=== PATIENT | female | born 1960 | race Caucasian/White ===

== ENCOUNTER 2017-01-31 10:33 | Emergency (ER) | payer MEDICARE ==
[~2017-01-31] VITALS: Ht 162.6 cm; Wt 127.0 kg
[~2017-01-31 10:33] MED LIST: ALBU8I INH; AMIT100 PO; CITA20TA4 PO; DIAZ5 PO; DOXA1 PO; DUONI NEB; FURO40TA PO; LOSA100T PO; METF850 PO; NORC10TA2 PO; POTA-267 PO; PRIL40CA PO; SULF-154 PO; WAL-10TA2 PO; ZOLP10TA3 PO
[2017-01-31 10:51] VITALS: BP 159/91; PULSE 68; RESP 17; TEMP 98; O2SAT 9; O2SAT 95
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
[2017-01-31 13:20] VITALS: BP 148/87; PULSE 70; RESP 16; O2SAT 97
[2017-01-31] MEDS ORDERED: IPRASOL INH (13:31)
[2017-01-31] MEDS ORDERED: FURO40TA PO (13:31)
[2017-01-31] MEDS ORDERED: VENTAER INH (13:31)
[2017-01-31] MEDS ORDERED: AMIT100T2 PO (13:31)
[2017-01-31] MEDS ORDERED: ADVA250A INH (13:31)
[2017-01-31] MEDS ORDERED: OMEP40CA2 PO (13:31)
[2017-01-31] MEDS ORDERED: DIAZ5TAB PO (13:31)
[2017-01-31] MEDS ORDERED: ZOLP10TA3 PO (13:31)
[2017-01-31] MEDS ORDERED: HYDR-3133 PO (13:31)
[2017-01-31] MEDS ORDERED: CITA20TA4 PO (13:37)
[2017-01-31] MEDS ORDERED: LOSA100T PO (13:37)
[2017-01-31] MEDS ORDERED: DOXA1TAB43 PO (13:37)
[2017-01-31] MEDS ORDERED: K-TA10TA PO (13:37)
[2017-01-31] MEDS ORDERED: DOXA4TAB3 PO (13:37)
[2017-01-31] MEDS ORDERED: LEVO25TA4 PO (13:37)
[2017-01-31] MEDS ORDERED: HYDR-3535 PO (13:37)
--- NOTE | 2017-01-31 13:56 | RADHPO ---
EXAM DATE/TIME: 01/31/2017 13:19 [facility] COMPARISON: No previous studies available for comparison. INDICATIONS : Left knee after fall. MEDICAL HISTORY : None. SURGICAL HISTORY : Total knee replacement, left. Total knee replacement, right. ENCOUNTER: Initial ACUITY: 2 days PAIN SCORE: 10/10 LOCATION: Left knee FINDINGS: There is a total knee prosthesis in place. This is well placed. No acute fracture is seen. No effusio n is seen. CONCLUSION: No acute disease. Sathya Hensley MD on January 31, 2017 at 13:52 Board Certified Radiologist. This report was verified electronically.
--- NOTE | 2017-01-31 14:02 | RADHPO ---
EXAM DATE/TIME: 01/31/2017 13:22 [facility] COMPARISON: KNEE LEFT COMPLETE (4VWS), January 31, 2017, 13:19. KNEE RIGHT COMPLETE (4VWS), August 05, 2013, 19 :43. INDICATIONS : Right knee pain after fall. MEDICAL HISTORY : None. SURGICAL HISTORY : Total knee replacement, left. Total knee replacement, right. ENCOUNTER: Initial ACUITY: 2 days PAIN SCORE: 10/10 LOCATION: Right knee FINDINGS: There is total knee prosthesis in place. Long femoral and tibial stems are present. An acute fracture is not seen. There is some stable linear lucency at the proximal lateral tibial metaphyseal region. This was present previously. There is prominent chronic hypertrophic/periosteal reaction at the more distal aspect of the tibial shaft. This was present previously. There is some hypertrophic change see n around the medial and lateral aspects of the knee joint. CONCLUSION: Stable chronic changes as described above. No new or acute abnormality is not seen. Sathya Hensley MD on January 31, 2017 at 13:55 Board Certified Radiologist. This report was verified electronically.
[2017-01-31 14:15] VITALS: BP 157/84; PULSE 72; RESP 16; O2SAT 98
--- NOTE | 2017-01-31 14:24 | RADHPO ---
EXAM DATE/TIME: 01/31/2017 14:07 [facility] COMPARISON: CT BRAIN W/O CONTRAST, November 17, 2012, 20:12. INDICATIONS : Fell two days ago. Right head and facial pain. RADIATION DOSE: 59.64 CTDIvol (mGy) MEDICAL HISTORY : Hypothyroidism. Cardiovascular disease. Anticoagulant therapy. SURGICAL HISTORY : Hysterectomy. Craniotomy ENCOUNTER: Initial ACUITY: 2 days PAIN SCALE: 3/10 LOCATION: Right cranial TECHNIQUE: Multiple contiguous axial images were obtained of the head. Using automated exposure control and adjustment of the mA and/or kV according to patient size, radiation dose was kept as low as reasonably achievable to obtain optimal diagnostic quality images. 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 Right hemisphere is unremarkable. Posterior fossa is normal. Orbits and paranasal sinu ses are unremarkable. CONCLUSION: Evidence for previous surgery on the left. Otherwise, negative for an acute process. Maged Hernandez MD FACR on January 31, 2017 at 14:20 Board Certified Radiologist. This report was verified electronically.
--- NOTE | 2017-01-31 14:39 | RADHPO ---
EXAM DATE/TIME: 01/31/2017 14:07 [facility] COMPARISON: No previous studies available for comparison. INDICATIONS : Fell two days ago. Right head and facial pain. RADIATION DOSE: 34.35 CTDIvol (mGy) MEDICAL HISTORY : Hypothyroidism. Cardiovascular disease Anticoagulant therapy. SURGICAL HISTORY : Hysterectomy. Craniotomy ENCOUNTER: Initial ACUITY: 2 days PAIN SCORE: 3/10 LOCATION: Right facial TECHNIQUE: Volumetric scanning of the facial bones was performed. Using automated exposure control and adjustme nt of the mA and/or kV according to patient size, radiation dose was kept as low as reasonably achiev able to obtain optimal diagnostic quality images. FINDINGS: ORBITS: The orbital and infraorbital osseous structures are intact. The retroconal structures have a normal configuration. No radiopaque foreign bodies are seen. NASAL BONE: The nasal bone and maxillary spine are intact ZYGOMATIC ARCHES: Symmetric without evidence of fracture. SINUSES: The maxillary, ethmoid and frontal sinuses are intact. No air-fluid levels seen. NASAL CAVITY: The nasal septum is intact and midline. The lacrimal ducts are intact. SOFT TISSUES: No radiopaque foreign bodies seen. No soft-tissue swelling is seen. INTRACRANIAL: No intracranial air seen. CRIBIFORM PLATE: Grossly intact. OTHER: The patient is status post left craniotomy. CONCLUSION: No acute abnormality is seen. The patient is status post left craniotomy. Sathya Hensley MD on January 31, 2017 at 14:35 Board Certified Radiologist. This report was verified electronically.
== END 2017-01-31 16:12 | disposition home or self-care (01) ==
LOC: PHED 10:33
DX: S00.83XA Contusion of other part of head, initial encounter (principal); S80.02XA Contusion of left knee, initial encounter; S80.01XA Contusion of right knee, initial encounter; W01.0XXA Fall on same level from slipping, tripping and stumbling without subsequent striking against object, initial encounter; Y93.H2 Activity, gardening and landscaping; Y92.007 Garden or yard of unspecified non-institutional (private) residence as the place of occurrence of the external cause; W19.XXXA Unspecified fall, initial encounter; Y93.9 Activity, unspecified; Y92.002 Bathroom of unspecified non-institutional (private) residence as the place of occurrence of the external cause; I10 Essential (primary) hypertension; E03.9 Hypothyroidism, unspecified
CPT/HCPCS: 70450; 70486; 73564

== ENCOUNTER 2017-06-28 11:18 | Inpatient (IN) | payer MEDICARE ==
[2017-06-28] VITALS (18 sets, daily range): BP systolic 72–114; BP diastolic 41–66; PULSE 84–103; RESP 16–33; TEMP 99.1–100.9; O2SAT 91–99
[~2017-06-28] VITALS: Ht 165.1 cm; Wt 131.6 kg
[~2017-06-28 11:18] MED LIST changes: +ADVA250A INH; -ALBU8I INH; -AMIT100 PO; +AMIT100T2 PO; -DIAZ5 PO; +DIAZ5TAB PO; -DOXA1 PO; +DOXA1TAB43 PO; +DOXA4TAB3 PO; -DUONI NEB; +HYDR-3133 PO; +HYDR-3535 PO; +IPRASOL INH; +K-TA10TA PO; +LEVO25TA4 PO; -NORC10TA2 PO; +OMEP40CA2 PO; -POTA-267 PO; -PRIL40CA PO; -SULF-154 PO; +VENTAER INH; -WAL-10TA2 PO
[2017-06-28] MEDS ORDERED: SODIUM CHLOR 0.9% 1000 ML INJ 1,000 ML IV SCH (11:26)
[2017-06-28] MEDS ORDERED: ONDANSETRON HCL 4 MG/2 ML VIAL IVP ONE (11:30)
[2017-06-28] MEDS ORDERED: SODIUM CHLORIDE 0.9% FLUSH 10 ML FLUSH IV FLUSH PRN ×2 (11:30→15:30)
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
--- NOTE | 2017-06-28 12:06 | RADRPT ---
EXAM DATE/TIME: 06/28/2017 11:48 [facility] COMPARISON: CT ABDOMEN & PELVIS W CONTRAST, September 04, 2010, 15:58. INDICATIONS : Bilateral mid lower abdominal pain. Evaluate for renal calculi. ORAL CONTRAST: No oral contrast ingested. RADIATION DOSE: 27.87 CTDIvol (mGy) ; Patient body habitus MEDICAL HISTORY : Hypertension. SURGICAL HISTORY : Hysterectomy. Craniotomy.Esophagus dilation. ENCOUNTER: Initial ACUITY: 3 days PAIN SCALE: 6/10 LOCATION: Bilateral lower quadrant TECHNIQUE: Volumetric scanning of the abdomen and pelvis was performed. Using automated exposure control and ad justment of the mA and/or kV according to patient size, radiation dose was kept as low as reasonably achievable to obtain optimal diagnostic quality images. DICOM format image data is available electro nically for review and comparison. The lack of IV contrast limits the diagnosis for certain organ pa thology. FINDINGS: LIVER: Homogeneous density without lesion. There is no dilation of the biliary tree. There are stable calci fied gallstones. No change compared to 2009. No adjacent inflammatory changes. SPLEEN: Normal size without lesion. PANCREAS: Within normal limits. KIDNEYS: Normal in size and shape. There is no mass or hydronephrosis. There is a 3 mm stone midpole right ki dney not causing obstruction. There is a 7 mm stone upper pole left kidney not causing obstruction. T here is a 4 mm stone lower pole left kidney not causing obstruction. The ureters are nondilated. ADRENAL GLANDS: Within normal limits. VASCULAR: There is no aortic aneurysm. BOWEL/MESENTERY: The stomach, small bowel, and colon demonstrate no acute abnormality. There is no free intraperitone al air or fluid. No inflammatory changes. There is some scattered diverticula along the sigmoid colon without inflammatory changes. ABDOMINAL WALL: Within normal limits. RETROPERITONEUM: There is no lymphadenopathy. BLADDER: No wall thickening or mass. No stones. REPRODUCTIVE: Within normal limits. INGUINAL: There is no lymphadenopathy or hernia. MUSCULOSKELETAL: Within normal limits for patient age. Bony degenerative changes. CONCLUSION: 1. 7 mm stone midpole left kidney not causing obstruction. 2. 4 mm stone lower pole left kidney not causing obstruction. 3. 3 mm stone midpole right kidney not causing obstruction. 4. Stable gallstones in the gallbladder. No biliary tract obstruction. 5. Scattered diverticulosis of the sigmoid colon 6. No significant changes compared to 2009. Eric Flores MD on June 28, 2017 at 11:59 Board Certified Radiologist. This report was verified electronically.
[2017-06-28 12:11] LABS: AUTOMATED NEUTROPHIL # 7.1 TH/MM3 (1.8-7.7); BASOPHIL # 0.1 TH/MM3 (0-0.2); BASOPHIL % 1.1 % (0.0-2.0); EOSINOPHIL # 0.1 TH/MM3 (0-0.4); EOSINOPHIL % 1.1 % (0.0-4.0); HEMATOCRIT 40.3 % (35.0-46.0); LYMPH % 28.2 % (9.0-44.0); LYMPHOCYTE # 3.2 TH/MM3 (1.0-4.8); MEAN CELL VOLUME 89.6 FL (80.0-100.0); MEAN CORPUSCULAR HEMOGLOBIN 30.2 PG (27.0-34.0); MEAN CORPUSCULAR HGB CONC 33.7 % (32.0-36.0); MONO % 7.5 % (0.0-8.0); NEUT % 62.1 % (16.0-70.0); PLATELET COUNT 95 TH/MM3 (150-450); RED BLOOD COUNT 4.49 MIL/MM3 (4.00-5.30); RED CELL DISTRIBUTION WIDTH 13.3 % (11.6-17.2); WHITE BLOOD COUNT 11.4 TH/MM3 (4.0-11.0)
[2017-06-28 12:15] LABS: HEMO FLAGS AUTO DIFF
[2017-06-28 12:18] LABS: CHLORIDE 94 MEQ/L (98-107); POTASSIUM 3.5 MEQ/L (3.5-5.1); SODIUM (NA) 129 MEQ/L (136-145)
[2017-06-28 12:22] LABS: ANION GAP 11 MEQ/L (5-15); BICARBONATE 24.4 MEQ/L (21.0-32.0); BLOOD UREA NITROGEN 26 MG/DL (7-18)
[2017-06-28] MEDS ORDERED: IPRASOL INH (12:22)
[2017-06-28] MEDS ORDERED: METR500T10 PO (12:22)
[2017-06-28] MEDS ORDERED: BETA0.052 TOPICAL (12:22)
[2017-06-28] MEDS ORDERED: VENTAER INH (12:22)
[2017-06-28] MEDS ORDERED: ZOLP10TA3 PO (12:22)
[2017-06-28] MEDS ORDERED: OXYC1TAB35 PO (12:22)
[2017-06-28] MEDS ORDERED: TRAZ100T6 PO (12:22)
[2017-06-28] MEDS ORDERED: CITA20TA4 PO (12:22)
[2017-06-28] MEDS ORDERED: ADVA250A INH (12:22)
[2017-06-28] MEDS ORDERED: CIPR500T2 PO (12:22)
[2017-06-28] MEDS ORDERED: DIAZ5TAB PO (12:22)
[2017-06-28] MEDS ORDERED: FURO20TA PO (12:22)
[2017-06-28] MEDS ORDERED: LOSA50TA PO (12:22)
[2017-06-28] MEDS ORDERED: LEVO25TA4 PO (12:22)
[2017-06-28] MEDS ORDERED: ALLE10TA PO (12:23)
[2017-06-28] MEDS ORDERED: LOTR15T TOPICAL (12:23)
[2017-06-28] MEDS ORDERED: ALEV220T14 PO (12:23)
[2017-06-28] MEDS ORDERED: OMEP40CA2 PO (12:23)
[2017-06-28] MEDS ORDERED: NYST15T TOPICAL (12:23)
[2017-06-28] MEDS ORDERED: SPIR25TA PO (12:23)
[2017-06-28 12:25] LABS: ALT (GPT) 41 U/L (10-53); AST (GOT) 48 U/L (15-37); GLOMERULAR FILTRATION RATE 17 ML/MIN (>89)
[2017-06-28 12:27] LABS: TOTAL BILIRUBIN ADULT 0.6 MG/DL (0.2-1.0)
[2017-06-28 12:28] LABS: ALKALINE PHOSPHATASE 94 U/L (45-117)
[2017-06-28] MEDS ORDERED: SODIUM CHLOR 0.9% 1000 ML INJ 1,000 ML IV ONE ×3 (12:32→12:45)
[2017-06-28] MEDS ORDERED: AZTREONAM INJ 2,000 MG in SODIUM CHLORIDE 0.9% INJ 100 ML IV STA (12:32)
[2017-06-28] MEDS ORDERED: SODIUM CHLOR 0.9% 1000 ML INJ 100 ML IV ONE (12:32)
[2017-06-28 12:37] LABS: PLATELET ESTIMATE SMEAR LOW (NORMAL); PLATELET MORPHOLOGY NORMAL (NORMAL); SCAN/DIFF AUTO DIFF CONFIRMED
[2017-06-28] MEDS ORDERED: NOREPINEPHRINE 4 MG/4 ML AMP ONE (12:38)
[2017-06-28] MEDS ORDERED: NOREPINEPHRINE-DEXTROSE DRIP 250 ML IV SCH (12:45)
[2017-06-28] MEDS ORDERED: metroNIDAZOLE 500 MG INJ 100 ML IV ONE (12:45)
[2017-06-28 12:58] LABS: APTT (PATIENT) 28.4 SEC (24.3-30.1); INTERNATIONAL NORMALIZED RATIO 1.2 RATIO
[2017-06-28 14:02] LABS: BLOOD, URINE SMALL (NEG); GLUCOSE,URINE NEG (NEG); KETONE, URINE NEG (NEG); NITRITE,URINE NEG (NEG); PH, URINE 5.5 (5.0-8.5)
[2017-06-28 14:05] LABS: METHOD OF COLLECTION CLEAN CATCH; URINE COLOR YELLOW (YELLW/STRAW)
[2017-06-28 14:07] LABS: BACTERIA, URINE FEW /hpf; COMMENT (UR) CULTURE INDICATED; COMMENT2 (UR) MUCOUS PRESENT; CULTURE IF INDICATED CULTURE INDICATED
--- NOTE | 2017-06-28 15:23 | RADRPT ---
EXAM DATE/TIME: 06/28/2017 15:06 [facility] COMPARISON: CHEST SINGLE AP, February 06, 2016, 16:46. INDICATIONS : Post central line placement. MEDICAL HISTORY : Hypertension. SURGICAL HISTORY : None. ENCOUNTER: Initial ACUITY: 1 day PAIN SCORE: 6/10 LOCATION: Right chest FINDINGS: A single view of the chest demonstrates a right central line in place. No evidence of pneumothorax. T here appears to be some pulmonary venous congestion. Otherwise, no significant changes compared to th e prior study. The heart size is mildly enlarged. Bony structures are stable. There are old right-bk ed rib fractures.. CONCLUSION: 1. Right central line in place. No pneumothorax. 2. Pulmonary venous congestion. Eric Flores MD on June 28, 2017 at 15:21 Board Certified Radiologist. This report was verified electronically.
[2017-06-28] MEDS ORDERED: CHLORHEXIDINE GLUCONATE 2 % 1 PACK (2 CLOTHS) TOP PRN (15:30)
[2017-06-28] MEDS ORDERED: LACTULOSE SYRUP 20 GM/30 ML CUP PO PRN (15:30)
[2017-06-28] MEDS ORDERED: SENNOSIDES 8.6 MG TAB PO PRN (15:30)
[2017-06-28] MEDS ORDERED: ONDANSETRON HCL 4 MG/2 ML VIAL IV PRN (15:30)
[2017-06-28] MEDS ORDERED: RESP: ALBUTEROL 2.5 MG/IPRATROPIUM 0.5 MG NEB (PRN) INH (15:30)
[2017-06-28] MEDS ORDERED: BISACODYL 10 MG SUPP RECTAL PRN (15:30)
[2017-06-28] MEDS ORDERED: ACETAMINOPHEN 325 MG TAB PO PRN (15:30)
[2017-06-28] MEDS ORDERED: MAGNESIUM HYDROXIDE SUSP 30 ML CUP PO PRN (15:30)
[2017-06-28] MEDS ORDERED: MISCELLANEOUS NURSING INFORMATION XX SCH (15:30)
[2017-06-28] MEDS ORDERED: HYDROmorphone HCL PF 1 MG/ML VIAL IV PRN (15:30)
[2017-06-28] MEDS ORDERED: Vancomycin Consult Pharmacy 1 EA OTHER SCH (15:45)
[2017-06-28] MEDS ORDERED: Gentamicin Consult Pharmacy 1 EA XX SCH (15:45)
[2017-06-28] MEDS ORDERED: TERBUTALINE INJ 1 MG/ML AMP SQ PRN (15:45)
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
[2017-06-28 19:41] LABS: THYROXINE (T4) 9.9 MCG/DL (4.8-13.9)
[2017-06-28] MEDS ORDERED: VANCOMYCIN INJ 1,600 MG in SODIUM CHLORID 0.9% 500 ML INJ 500 ML IV SCH (20:00)
[2017-06-28] MEDS: DOCUSATE SODIUM 50 MG/SENNA 8.6 MG TAB PO SCH (20:58)
[2017-06-28] MEDS: BUDESONIDE-FORMOTEROL 160/4.5 MCG INHALER INH SCH (20:58)
[2017-06-28] MEDS: FAMOTIDINE 20 MG/2 ML VIAL IV PUSH SCH (20:59)
[2017-06-28] MEDS ORDERED: GENTAMICIN IV ONE (21:00)
[2017-06-28] MEDS ORDERED: SODIUM CHLORIDE 0.9% IV ONE (21:00)
[2017-06-28] MEDS: SODIUM CHLORIDE 0.9% FLUSH 10 ML FLUSH IV FLUSH SCH (21:01)
--- NOTE | 2017-06-28 21:52 | MB ---
cc: AGATA KUHN MD DATE OF CONSULTATION 06/28/2017 REASON FOR CONSULTATION Elevated BUN and creatinine for evaluation. HISTORY OF PRESENT ILLNESS This is a 57-year-old female with past medical history of anxiety. depression, bronchial asthma, hypertension, arthritis, hypothyroidism was brought to the [facility] emergency because of nausea, vomiting and generalized weakness. I was called to see the patient because of elevated BUN and creatinine and low potassium of 129. The patient was found to have creatinine of 2.8 and BUN of 26 and sodium of 129. The patient previously has a creatinine of 0.8-0.9 this was about a year ago in April of last year. The patient denies any previous known history of renal disease. She has been sick for three or four days at home and was feeling weak and dizzy on Tuesday and had a syncopal episode on Tuesday. She went to see her primary physician on Tuesday and she was given some antibiotic for urinary tract infection, but she was not improving and feeling weak and not eating well and having this nausea vomiting going on so she came to the emergency department. There it was found that she has low blood pressure systolic 70s. The patient was given fluid. She started on pressors and she was transferred to the main hospital. She denies any history of diarrhea. She has mild abdominal pain. She has chronic shortness of breath off and on. She does not have any dysuria, hematuria. She did not notice any decrease in the urine output. There is no history of taking any nonsteroidal anti-inflammatory drugs. PAST MEDICAL HISTORY 1. Hypertension. 2. Bronchial asthma. 3. Arthritis. 4. Anxiety. 5. Depression. 6. Gastroesophageal reflux disorder. 7. Hypothyroidism. PAST SURGICAL HISTORY 1. Hysterectomy. 2. History of craniotomy for subdural hematoma. 3. Cardiac catheterization. 4. Right total knee replacement. 5. Left total knee replacement. 6. Left humerus surgery with plating and screw. SOCIAL HISTORY There is no history of smoking. Occasionally she has alcoholic beverages. FAMILY HISTORY Noncontributory. REVIEW OF SYSTEMS The patient has generalized weakness, feeling tired and has been feeling dizzy and she had a syncopal episode on Tuesday. She is not eating well, has nausea and vomiting and has mild abdominal discomfort. There is no history of chest pain. No shortness of breath. No dysuria, hematuria. ALLERGIES SHE HAS ALLERGY TO HUA INHIBITORS. MEDICATIONS Currently she is on following medications: 1. Normal saline at 84 ml an hour. 2. Sarah-Colace 1 tablet b.i.d. 3. Celexa 20 mg daily. 4. Synthroid 25 mcg daily. 5. Aztreonam 1 gram q. 12-hour. 6. Gentamicin one dose was given. 7. Famotidine 12 mg once a day. 8. Vancomycin 1.6 grams q. 36-hour. 9. Norepinephrine. 10. Dilaudid as needed. 11. PHYSICAL EXAMINATION GENERAL: On examination the patient is awake, alert. She is not in acute distress. VITAL SIGNS: Her last blood pressure 94/62, temperature is 99.1, oxygen saturation on 2 liters nasal cannula 95%. The lowest recorded blood pressure was 75/51 on presentation. HEENT: Pupils are mid constricted. Nonicteric sclera, conjunctiva normal. NECK: Supple. JVD is mildly elevated. LUNGS: The patient has bilateral good air entry with scattered wheezing. HEART: S1-S2. Regular rhythm. ABDOMEN: Distended, soft, lax. There is mild epigastric tenderness. There is no rebound rigidity. Bowel sounds positive. EXTREMITIES: There is no edema. LABORATORY DATA Investigations WBC count 11.4, hemoglobin 13.6, platelet count of 95, neutrophils 62.1%. sodium 129, potassium 3.5, chloride 94, bicarb 24.4, BUN 26, creatinine 2.8, glucose 108. Calcium 8.0. AST is 48, ALT is 41. Troponin is 0.02. Total protein is 6.4. Albumin of 2.3. INR 1.2. Urinalysis showing that there is no protein. She has a rbc's of 10-14 and wbc's of 3-5. IMAGING STUDIES The patient had a chest x-ray done which shows some pulmonary venous congestion. CT scan of the abdomen and pelvis was done without IV contrast and shows 7 mm mid pole left renal stone without obstruction. Also there is 4 mm stone on the left side and a 3 mm on the right side. He has stable gallstone. No biliary obstruction. Diverticulosis. ASSESSMENT/PLAN 1. Hypotension rule-out sepsis. 2. Acute kidney injury. 3. Possible urinary tract infection. 4. History of bronchial asthma. 5. Hyponatremia. 6. Dehydration. The patient has acute kidney injury with no proteinuria, most likely has acute tubular necrosis. She has been nonoliguric. Blood pressure is improving. Continue IV fluid and the antibiotic. Follow the culture results. Follow the vancomycin level. Avoid any other further nephrotoxins. Follow the urine output and BUN and creatinine. Thank you for the consultation and I will follow the patient while she is in the hospital. MD ALINE Roberson/KK /5:55 PM /9:24 PM
[2017-06-28] MEDS ORDERED: VASOPRESSIN INJ 40 UNITS in DEXTROSE 5% IN WATER 100ML INJ 98 ML IV SCH ×2 (23:18)
[2017-06-28] MEDS: NOREPINEPHRINE INJ 4 MG in SODIUM CHLOR 0.9% 250 ML INJ 246 ML IV SCH (23:56)
[2017-06-29] VITALS (14 sets, daily range): BP systolic 88–121; BP diastolic 52–68; PULSE 80–91; RESP 20–32; TEMP 98.4–99.8; O2SAT 90–97
[2017-06-29] MEDS ORDERED: AZTREONAM INJ 1,000 MG in SODIUM CHLORIDE 0.9% INJ 100 ML IV SCH ×2
[2017-06-29] MEDS: CHLORHEXIDINE GLUCONATE 2 % 1 PACK (2 CLOTHS) TOP SCH (04:00)
[2017-06-29] MEDS: LEVOTHYROXINE SODIUM 25 MCG TAB PO SCH (05:50)
[2017-06-29] MEDS: NOREPINEPHRINE INJ 4 MG in SODIUM CHLOR 0.9% 250 ML INJ 246 ML IV SCH ×2 (06:45→08:07)
[2017-06-29] MEDS: BUDESONIDE-FORMOTEROL 160/4.5 MCG INHALER INH SCH ×2 (08:06→19:45)
[2017-06-29] MEDS: SODIUM CHLORIDE 0.9% FLUSH 10 ML FLUSH IV FLUSH SCH ×2 (08:06→19:44)
[2017-06-29] MEDS: FAMOTIDINE 20 MG/2 ML VIAL IV PUSH SCH ×2 (08:07→19:44)
[2017-06-29] MEDS: CITALOPRAM HYDROBROMIDE 20 MG TAB PO SCH (08:07)
[2017-06-29] MEDS: DOCUSATE SODIUM 50 MG/SENNA 8.6 MG TAB PO SCH ×2 (08:07→19:44)
--- NOTE | 2017-06-29 08:17 | EKG ---
Date Performed: 06/29/2017 Time Performed: 03:04:00 PTAGE: 57 years EKG: Sinus rhythm Low QRS voltages in precordial leads Borderline ECG PREVIOUS TRACING : 06/28/2017 20.59 DOCTOR: Perez Rhodes Interpretating Date/Time 06/29/2017 08:16:00
--- NOTE | 2017-06-29 08:23 | EKG ---
Date Performed: 06/28/2017 Time Performed: 20:59:58 PTAGE: 57 years EKG: Sinus rhythm LOW QRS VOLTAGE IN PRECORDIAL LEADS BORDERLINE ECG PREVIOUS TRACING : 06/28/2017 11.25 DOCTOR: Perez Rhodes Interpretating Date/Time 06/29/2017 08:22:41
--- NOTE | 2017-06-29 08:39 | EKG ---
Date Performed: 06/28/2017 Time Performed: 11:25:27 PTAGE: 57 years EKG: SINUS TACHYCARDIA LOW QRS VOLTAGE IN PRECORDIAL LEADS POSSIBLE ANTERIOR MYOCARDIAL INFARCTI ON ABNORMAL ECG INTERPRETATION BASED ON A DEFAULT AGE OF 40 YEARS NO PREVIOUS TRACING DOCTOR: Perez Rhodes Interpretating Date/Time 06/29/2017 08:33:17
[2017-06-29 08:43] LABS: HEMATOCRIT 36.8 % (35.0-46.0); MEAN CELL VOLUME 91.7 FL (80.0-100.0); MEAN CORPUSCULAR HEMOGLOBIN 30.5 PG (27.0-34.0); MEAN CORPUSCULAR HGB CONC 33.2 % (32.0-36.0); PLATELET COUNT 114 TH/MM3 (150-450); RED BLOOD COUNT 4.01 MIL/MM3 (4.00-5.30); RED CELL DISTRIBUTION WIDTH 14.1 % (11.6-17.2); WHITE BLOOD COUNT 11.3 TH/MM3 (4.0-11.0)
[2017-06-29 08:46] LABS: HEMO FLAGS AUTO DIFF
[2017-06-29 09:21] LABS: POTASSIUM 3.1 MEQ/L (3.5-5.1)
[2017-06-29 09:39] LABS: CALCIUM-PROTEIN CORRECTED 7.9 MG/DL (8.5-10.1)
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
[2017-06-29] MEDS ORDERED: GLUCAGON 1 MG/ML VIAL OTHER PRN ×2 (09:45→15:30)
[2017-06-29] MEDS ORDERED: PLEASE DISCONTINUE PREVIOUS SUPPLEMENTAL SCALE INSULIN ORDERS ONE (09:45)
[2017-06-29] MEDS ORDERED: DEXTROSE 50% IN WATER 50 ML VIAL(D50) IV PUSH PRN (09:45)
[2017-06-29 10:06] LABS: ATYPICAL LYMPHOCYTES 13 % (0-0); BANDS 2 % (0-6); BASOPHILS 1 % (0-2); BLASTS 2 % (0-0); PLASMA CELLS 2 % (0-0); POLYS (SEG NEUTROPHILS) 51 % (16-70); WBC DIFF SAMPLE 100
[2017-06-29 10:09] LABS: PLATELET ESTIMATE SMEAR LOW (NORMAL); PLATELET MORPHOLOGY NORMAL (NORMAL); SCAN/DIFF FINAL DIFF MANUAL
--- NOTE | 2017-06-29 10:49 | RADRPT ---
EXAM DATE/TIME: 06/29/2017 10:19 [place] COMPARISON: No previous studies available for comparison. INDICATIONS : Urosepsis, evaluate for obstruction. MEDICAL HISTORY : Hypothyroidism. Hypertension. SURGICAL HISTORY : Cardiac catheterization. Esophogeal dilatation. Hysterectomy. Bunionectomy. ORIF left humerus. B ilateral knee replacement. ENCOUNTER: Subsequent ACUITY: 1 day PAIN SCORE: 6/10 LOCATION: Bilateral flank MEASUREMENTS: RIGHT KIDNEY: 13.3 x 5.1 x 5.0 cm LEFT KIDNEY: 12.5 x 4.3 x 5.4 cm FINDINGS: RIGHT KIDNEY: Renal cortex is normal in thickness and echotexture. No hydronephrosis, stone, or mass. LEFT KIDNEY: Renal cortex is normal in thickness and echotexture. No hydronephrosis, stone, or mass. BLADDER: Decompressed CONCLUSION: Normal-appearing kidneys Sathya Rowe MD on June 29, 2017 at 10:46 Board Certified Radiologist. This report was verified electronically.
[2017-06-29] MEDS: PIPERACIL-TAZO 3.375 GM PREMIX 50 ML IV SCH ×3 (10:51→21:58)
[2017-06-29] MEDS ORDERED: TERBUTALINE INJ 1 MG/ML AMP SQ PRN (11:45)
[2017-06-29] MEDS ORDERED: LOW DOSE INSULIN NOVOLOG SUPPLEMENTAL SCALE SQ SCH (12:00)
[2017-06-29] MEDS: PHENYLEPHRINE INJ 40 MG in SODIUM CHLORID 0.9% 500 ML INJ 496 ML IV SCH ×2 (12:13→21:50)
[2017-06-29] MEDS ORDERED: POTASSIUM CHLOR 20 MEQ PREMIX 100 ML IV ONE (15:15)
[2017-06-29] MEDS ORDERED: POTASSIUM CHLORIDE 25 MEQ EFFERVESCENT TAB PO ONE (15:15)
[2017-06-29] MEDS: SODIUM CHLOR 0.9% 1000 ML INJ 1,000 ML IV SCH (15:27)
[2017-06-29] MEDS ORDERED: DEXTROSE 50% IN WATER 50 ML VIAL(D50) IV PRN (15:30)
[2017-06-29] MEDS: INSULIN ASPART SUPPLEMENTAL SCALE SQ SCH ×2 (16:00→21:00)
--- NOTE | 2017-06-29 16:48 | HHI.CCPN ---
Subjective Remarks/Hospital Course This is a 57-year-old female that presented to [facility] emergency department with complaints of nausea and vomiting. She reports that she has been having symptoms for approximately 2 days, with episodes of dizziness with a syncopal episode on Tuesday. She reported to her primary care physician on Tuesday, Dr. Urbina at which point she stated that she was informed she had a possible urinary tract infection she was placed on antibiotics Flagyl, and a floroquinolone and she received some type of IM injection, medication unknown her symptoms worsen and she presented to the ED this afternoon vital signs were obtained systolic BP was noted to be in the 70s. The patient received approximately 3 L of IV fluid and empiric antibiotics were initiated, Atrezonam and Flagyl. The patient continued to be hypotensive and norepinephrine was initiated. Laboratory and imaging studies were performed which revealed a creatinine of 2.8, patient's baseline creatinine is 1.0, thrombocytopenia, and hyponatremia. UA was obtained which revealed hematuria. CT of the abdomen and pelvis revealed nephrolithiasis, diverticulosis and stable gallstones which resembled her previous CT scan of the abdomen performed in 2009. Critical care medicine was consulted for management. A right subclavian triple-lumen catheter was placed in the ED. Subjective: 06/29: Afebrile. This a.m., norepinephrine discontinued. Phenylephrine infusion low-dose at 20 mcgs currently infusing. Creatinine improved down to 1.6. The patient continues on normal saline 84cc/hr. Nausea resolved patient now tolerating a heart healthy diet. Objective Vital Signs Date Time Temp Pulse Resp B/P Pulse Ox O2 Delivery O2 Flow Rate FiO2 06/29/17 16:00 82 06/29/17 12:00 99.0 26 103/56 92 06/29/17 07:59 Nasal Cannula 4.00 Intake and Output 06/28/17 06/28/17 06/29/17 08:00 16:00 00:00 Intake Total 3200 ml 1007 ml Output Total 1200 ml Balance 3200 ml -193 ml Result Diagram: 06/29/17 0750 06/29/17 0750 Imaging Last Impressions Abdomen/Pelvis CT 06/28/17 1126 Signed Impressions: Service Date/Time: Wednesday, June 28, 2017 11:48 - CONCLUSION: 1. 7 mm stone midpole left kidney not causing obstruction. 2. 4 mm stone lower pole left kidney not causing obstruction. 3. 3 mm stone midpole right kidney not causing obstruction. 4. Stable gallstones in the gallbladder. No biliary tract obstruction. 5. Scattered diverticulosis of the sigmoid colon 6. No significant changes compared to 2009. Eric Flores MD Chest X-Ray 06/28/17 0000 Signed Impressions: Service Date/Time: Wednesday, June 28, 2017 15:06 - CONCLUSION: 1. Right central line in place. No pneumothorax. 2. Pulmonary venous congestion. Eric Flores MD Urinary Catheter: Yes Assessment to: Continue Simon insert reason: Measure Accurate Output Date of Insertion: Jun 28, 2017 Vascular Central Line Catheter: Yes Assessment to: Continue Date of Insertion: Jun 28, 2017 Side: Right Location: Subclavian A/P Assessment and Plan Assessment Septic shock Urosepsis Acute pyelonephritis Nephrolithiasis DARLENE secondary to septic shock Nausea Respiratory insufficiency Hypertension Respiratory insufficiency Hyponatremia Asthma Morbid Obesity Plan by systems: Neurologic: Tylenol 650 mg every 6 hours when necessary for pain or fever Minimize sedatives Respiratory: Maintain O2 sat greater than 92%. Provide O2 1-4 L nasal cannula if required, currently on 2L Wean FiO2 as tolerated Bronchodilators every 4 hours when necessary Resume patient's home bronchodilators Maintain head of bed 30 Cardiovascular: Hold home antihypertensive meds Maintain MAP greater than 65 mmHg Currently on Phenylephrine infusion wean as tolerated Renal: Maintain simon Nephrology consulted- F/U recommendations CT-mid pole right kidney 3 mm stone, upper pole left kidney 7 mm stone, lower left pole 4 mm stone-all nonobstructive, no hydronephrosis -- Strict I/Os FEN/GI: Bolused 06/28 in ED with 3 L Normal saline 84 cc/hour Advance to regular diet Zofran for nausea Pepcid for GI prophylaxis 06/28 CT abdomen and pelvis-stable gallstones, scattered diverticulosis of sigmoid colon. Heme/ID: Mild leukocytosis Follow-up lactic acid levels ID following- Dr. Gómez Obtain blood culture Follow-up urine culture F/U C. difficile antigen Endocrine: F/U TSH, T4, random cortisol level Glucose monitoring per ICU protocol -- SSI Prophylaxis: GI Prophylaxis Pepcid BID DVT Prophylaxis -- SCDs Pharmacological DVT prophylaxis on hold currently in the setting of hematuria, will reevaluate Lines: Right subclavian triple-lumen 06/28, right radial A-line 06/28- 06/29, peripheral IVs 2 Dispo: This patient remains critically ill with one or more organ systems which are or may become a threat to life. I have spent in excess of 30 minutes discontinuously in the care and management of this patient. This time is exclusive of procedures, and includes, but is not limited to, evaluation of the patient, review of the medical record, discussions with family, consultants, nursing staff, or respiratory therapy, and documentation in the medical record. Physician Yue Grace MD Jun 29, 2017 16:48
[2017-06-29] MEDS: VANCOMYCIN INJ 1,500 MG in SODIUM CHLORID 0.9% 500 ML INJ 500 ML IV SCH (19:43)
[2017-06-29] MEDS: ZOLPIDEM TARTRATE 10 MG TAB PO PRN (22:42)
--- NOTE | 2017-06-29 23:08 | HHI.NPPN ---
Subjective History of Present Illness 57-year-old female with past medical history of anxiety. depression, bronchial asthma, hypertension, arthritis, hypothyroidism was brought to the [place] emergency because of nausea, vomiting and generalized weakness. I was called to see the patient because of elevated BUN and creatinine. Additional Remarks Patient is alert, mild SOB and has cough, mainly dry. Review of Systems General Constitutional: Fatigue Respiratory Lungs: SOB, Cough Cardiovascular Cardiac: ALCARAZ Objective Data Data 06/28/17 06/29/17 19:00 07:00 Intake Total 3200 ml 2662 ml Output Total 1675 ml Balance 3200 ml 987 ml IV Total 3200 ml 2662 ml Output Urine Total 1675 ml # Voids 1 # Bowel Movements 0 Vital Signs Date Time Temp Pulse Resp B/P Pulse Ox O2 Delivery O2 Flow Rate FiO2 06/29/17 22:00 84 06/29/17 20:00 99.8 86 26 96/56 90 06/29/17 20:00 86 06/29/17 18:00 91 06/29/17 16:00 82 06/29/17 16:00 98.7 82 26 121/59 94 06/29/17 14:00 80 06/29/17 12:00 99.0 83 26 103/56 92 06/29/17 12:00 83 06/29/17 10:00 86 06/29/17 08:00 99.0 85 20 89/52 93 Arterial Line 06/29/17 08:00 84 06/29/17 07:59 95 Nasal Cannula 4.00 06/29/17 06:00 89 06/29/17 04:00 98.4 87 32 100/57 94 88/68 06/29/17 04:00 87 06/29/17 02:00 91 06/29/17 00:00 87 06/29/17 00:00 98.7 87 32 100/56 97 118/55 -: 06/29/17 0750 06/29/17 0750 Physical Exam General Appearance: No Acute Distress, Comfortable Eyes Eye Exam: Pupils Equal Throat Throat Exam: Oral Mucosa [place] & Moist Neck Neck Exam: Neck Supple Pulmonary Resp Exam: No Distress, Crackles, Rhonchi, Decreased Bases, Diminished Breath Sounds Cardiology CV Exam: Regular, Normal Sinus Rhythm Gastrointestinal/Abdomen GI Exam: Soft, Non-Tender, Bowel Sounds Present, Distended Extremeties Extremities Exam: No Edema Neurologic Neuro Exam: Alert, Awake, Oriented Psychiatric Psych Exam: Appropriate Responses Assessment/Plan Assessment Summary: DARLENE/Acute Renal Failure, Acute Tubular Necrosis Electrolyte Assessment: Hypokalemia Problem List: (1) Hypokalemia (2) Diabetes mellitus (3) Hypothyroidism (4) Shock circulatory (5) Hyponatremia (6) Acute kidney injury Plan Patient has been non oliguric. The BP is still low. Creatinine is improving. K is low, follow Mg and Po4 level. Continue IVF and antibiotics. Avoid Nephrotoxins. Problem Qualifiers (1) Diabetes mellitus: Beau Cohen MD Jun 29, 2017 23:08
[2017-06-30] VITALS (14 sets, daily range): BP systolic 89–119; BP diastolic 51–78; PULSE 54–86; RESP 22–37; TEMP 97.5–98.7; O2SAT 92–100
[2017-06-30] MEDS ORDERED: QUEtiapine FUMARATE 25 MG TAB PO ONE (00:45)
[2017-06-30] MEDS: MELATONIN 5 MG TAB PO SCH ×2 (00:53→20:25)
[2017-06-30] MEDS ORDERED: DEXMEDETOMIDINE INJ 50 ML IV SCH (03:15)
[2017-06-30] MEDS ORDERED: DEXMEDETOMIDINE 200 MCG in NS 50 ML IV SCH (03:30)
[2017-06-30 03:46] LABS: C. DIFF EPI 027 PRESUMPTIVE NEGATIVE (NEGATIVE)
[2017-06-30] MEDS: SODIUM CHLOR 0.9% 1000 ML INJ 1,000 ML IV SCH ×2 (03:48→16:12)
[2017-06-30] MEDS: CHLORHEXIDINE GLUCONATE 2 % 1 PACK (2 CLOTHS) TOP SCH (04:00)
[2017-06-30] MEDS ORDERED: DEXMEDETOMIDINE INJ 1,000 MCG in SODIUM CHLOR 0.9% 250 ML INJ 240 ML IV SCH (04:00)
[2017-06-30 04:06] LABS: HEMATOCRIT 34.4 % (35.0-46.0); MEAN CELL VOLUME 91.9 FL (80.0-100.0); MEAN CORPUSCULAR HEMOGLOBIN 30.4 PG (27.0-34.0); MEAN CORPUSCULAR HGB CONC 33.1 % (32.0-36.0); PLATELET COUNT 113 TH/MM3 (150-450); RED BLOOD COUNT 3.74 MIL/MM3 (4.00-5.30); RED CELL DISTRIBUTION WIDTH 13.9 % (11.6-17.2); REVIEW FLAG FINAL; WHITE BLOOD COUNT 9.5 TH/MM3 (4.0-11.0)
[2017-06-30 04:43] LABS: BICARBONATE 22.1 MEQ/L (21.0-32.0); MAGNESIUM 1.3 MG/DL (1.5-2.5); POTASSIUM 3.5 MEQ/L (3.5-5.1)
[2017-06-30 04:55] LABS: CALCIUM-PROTEIN CORRECTED 8.1 MG/DL (8.5-10.1)
[2017-06-30] MEDS: INSULIN ASPART SUPPLEMENTAL SCALE SQ SCH ×4 (06:32→20:25)
[2017-06-30] MEDS: PIPERACIL-TAZO 3.375 GM PREMIX 50 ML IV SCH ×4 (06:32→22:43)
[2017-06-30] MEDS: PHENYLEPHRINE INJ 40 MG in SODIUM CHLORID 0.9% 500 ML INJ 496 ML IV SCH ×2 (06:34→18:03)
[2017-06-30] MEDS: LEVOTHYROXINE SODIUM 25 MCG TAB PO SCH (06:36)
[2017-06-30] MEDS: FAMOTIDINE 20 MG/2 ML VIAL IV PUSH SCH ×2 (08:15→20:25)
[2017-06-30] MEDS: SODIUM CHLORIDE 0.9% FLUSH 10 ML FLUSH IV FLUSH SCH ×2 (08:15→20:25)
[2017-06-30] MEDS: CITALOPRAM HYDROBROMIDE 20 MG TAB PO SCH (08:15)
[2017-06-30] MEDS: DOCUSATE SODIUM 50 MG/SENNA 8.6 MG TAB PO SCH ×2 (08:15→20:25)
[2017-06-30] MEDS: BUDESONIDE-FORMOTEROL 160/4.5 MCG INHALER INH SCH ×2 (08:15→20:26)
[2017-06-30] MEDS ORDERED: GENTAMICIN IV SCH (09:00)
[2017-06-30] MEDS ORDERED: SODIUM CHLORIDE 0.9% IV SCH (09:00)
[2017-06-30] MEDS ORDERED: MAGNESIUM SULFATE INJ 2 GM in SODIUM CHLORIDE 0.9% INJ 96 ML IV PRN (12:45)
[2017-06-30] MEDS ORDERED: POTASSIUM CHLOR 20 MEQ PREMIX 100 ML IV PRN ×2 (12:45)
[2017-06-30] MEDS ORDERED: MAGNESIUM OXIDE 400 MG TAB PO PRN (12:45)
[2017-06-30] MEDS ORDERED: POTASSIUM PHOSPHATE MONOBASIC 500 MG TAB PO PRN (12:45)
[2017-06-30] MEDS ORDERED: POTASSIUM CHLORIDE 25 MEQ EFFERVESCENT TAB PO PRN (12:45)
[2017-06-30] MEDS ORDERED: POTASSIUM PHOSPHATE INJ 30 MMOL in SODIUM CHLOR 0.9% 250 ML INJ 250 ML IV PRN (12:45)
[2017-06-30] MEDS ORDERED: POTASSIUM PHOSPHATE MONOBASIC 500 MG TAB PO/TUBE PRN (12:45)
[2017-06-30] MEDS ORDERED: POTASSIUM CHLOR 40 MEQ PREMIX 100 ML IV PRN ×2 (12:45)
[2017-06-30] MEDS ORDERED: SODIUM PHOSPHATE INJ 30 MMOL in SODIUM CHLOR 0.9% 250 ML INJ 240 ML IV PRN (12:45)
[2017-06-30] MEDS ORDERED: MAGNESIUM SULFATE INJ 4 GM in SODIUM CHLORIDE 0.9% INJ 92 ML IV PRN (12:45)
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
[2017-06-30] MEDS: MAGNESIUM SULFATE 1 GM PREMIX 100 ML IV SCH ×2 (13:45→16:13)
[2017-06-30] MEDS ORDERED: POTASSIUM PHOSPHATE INJ 30 MMOL in SODIUM CHLOR 0.9% 250 ML INJ 250 ML IV ONE (15:00)
[2017-06-30] MEDS ORDERED: CALCIUM GLUCONATE INJ 1 GM in SODIUM CHLORIDE 0.9% INJ 100 ML IV ONE (15:00)
[2017-06-30] MEDS: RESP: ALBUTEROL 2.5 MG/IPRATROPIUM 0.5 MG NEB (SCH) INH ×2 (15:18→21:43)
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
[2017-06-30] MEDS: HYDROCORTISONE SOD SUCCINATE 100 MG VIAL IV PUSH SCH ×2 (16:12→20:25)
[2017-06-30] MEDS ORDERED: FLUCONAZOLE 400 MG PREMIX BAG 200 ML IV SCH (18:00)
--- NOTE | 2017-06-30 18:44 | HHI.NPPN ---
Subjective History of Present Illness 57-year-old female with past medical history of anxiety. depression, bronchial asthma, hypertension, arthritis, hypothyroidism was brought to the [facility] emergency because of nausea, vomiting and generalized weakness. I was called to see the patient because of elevated BUN and creatinine. Additional Remarks Patient is alert, mild SOB complain of more cough. Review of Systems General Constitutional: Fatigue Respiratory Lungs: SOB, Cough Cardiovascular Cardiac: ALCARAZ Objective Data Data 06/29/17 06/30/17 19:00 07:00 Intake Total 1335 ml 2806 ml Output Total 800 ml 1925 ml Balance 535 ml 881 ml Intake Oral 300 ml IV Total 1335 ml 2506 ml Output Urine Total 800 ml 1925 ml # Bowel Movements 0 0 Vital Signs Date Time Temp Pulse Resp B/P Pulse Ox O2 Delivery O2 Flow Rate FiO2 06/30/17 18:00 86 06/30/17 16:00 84 06/30/17 14:00 70 06/30/17 12:00 68 06/30/17 12:00 98.3 68 26 116/78 100 06/30/17 10:24 96 Nasal Cannula 4.00 06/30/17 10:00 56 06/30/17 08:00 97.5 55 26 92/56 96 06/30/17 08:00 55 06/30/17 06:00 54 06/30/17 04:00 62 06/30/17 04:00 98.6 62 30 89/51 96 06/30/17 02:00 86 06/30/17 00:00 86 06/30/17 00:00 98.5 86 37 94/53 92 06/29/17 22:00 84 06/29/17 20:00 99.8 86 26 96/56 90 06/29/17 20:00 86 06/29/17 19:37 93 Nasal Cannula 2.00 -: 06/30/17 0345 06/30/17 0345 Physical Exam General Appearance: No Acute Distress, Comfortable Eyes Eye Exam: Pupils Equal Throat Throat Exam: Oral Mucosa Blue & Moist Neck Neck Exam: Neck Supple Pulmonary Resp Exam: No Distress, Crackles, Rhonchi, Decreased Bases, Diminished Breath Sounds Cardiology CV Exam: Regular, Normal Sinus Rhythm Gastrointestinal/Abdomen GI Exam: Soft, Non-Tender, Bowel Sounds Present, Distended Extremeties Extremities Exam: No Edema Neurologic Neuro Exam: Alert, Awake, Oriented Psychiatric Psych Exam: Appropriate Responses Assessment/Plan Assessment Summary: DARLENE/Acute Renal Failure, Acute Tubular Necrosis Electrolyte Assessment: Hypokalemia Problem List: (1) Hypokalemia (2) Diabetes mellitus (3) Hypothyroidism (4) Shock circulatory (5) Hyponatremia (6) Acute kidney injury Plan Patient has been non oliguric. The BP is still low. Creatinine is improving. K is low, Mg and Po4 level low, on replacement. Continue IVF and antibiotics. Avoid Nephrotoxins. Started on Vanco., follow the level. Problem Qualifiers (1) Diabetes mellitus: Beau Cohen MD Jun 30, 2017 18:44
--- NOTE | 2017-06-30 19:30 | ECHRPT ---
Indication: HYPERTENSIVE HEART DIS CONCLUSIONS Normal left ventricular size. Wall thickness is normal. The left ventricular systolic function is severely reduced with an estimated ejection fraction in th e range of 40%. There is paradoxical septal motion. This study was not technically sufficient to allow for evaluation of left ventricular diastolic func tion. The right ventricle is mildly dilated. The right ventricular systoilc function is mildly decreased. The left atrial size is gexo-[id number] dilated. The right atrial size is tmme-we-mkjvryxsbr dilated. Pbggz-dn-yfwu mitral valve regurgitation. Mild mitral annular calcification. Aortic valve sclerosis is present. There is trace tricuspid valve regurgitation. There is estimated mild pulmonary hypertension present (range 40-50 mmHg). The inferior vena cava is dilated. There is greater than 50% respiratory change in dimension of the inferior vena cava (normal). Possible trace anterior pericardial effusion vs fat pad BP: 89 / 51 HR: Rhythm: Sinus MEASUREMENTS (Male / Female) Normal Values Technical Quality:Fair 2D ECHO LV Diastolic Diameter PLAX 4.5 cm 4.2 - 5.9 / 3.9 - 5.3 cm LV Systolic Diameter PLAX 4.1 cm IVS Diastolic Thickness 0.8 cm 0.6 - 1.0 / 0.6 - 0.9 cm LVPW Diastolic Thickness 0.8 cm 0.6 - 1.0 / 0.6 - 0.9 cm LV Relative Wall Thickness 0.4 LVOT Diameter 2.1 cm Aortic Root Diameter 3.1 cm LA Systolic Diameter LX 3.2 cm 3.0 - 4.0 / 2.7 - 3.8 cm M-MODE AV Cusp Separation MM 1.9 cm DOPPLER AV Peak Velocity 176.0 cm/s AV Peak Gradient 12.4 mmHg AV Mean Gradient 6.5 mmHg AV Velocity Time Integral 25.4 cm LVOT Peak Velocity 111.0 cm/s LVOT Peak Gradient 4.9 mmHg LVOT Velocity Time Integral 18.7 cm AV Area Cont Eq vti 2.6 cm AV Area Cont Eq pk 2.2 cm Mitral E Point Velocity 75.5 cm/s Mitral A Point Velocity 57.5 cm/s Mitral E to A Ratio 1.3 LV E' Lateral Velocity 12.3 cm/s Mitral E to LV E' Lateral Ratio 6.1 LV E' Septal Velocity 9.7 cm/s Mitral E to LV E' Septal Ratio 7.8 TR Peak Velocity 299.0 cm/s TR Peak Gradient 35.8 mmHg PV Peak Velocity 90.2 cm/s PV Peak Gradient 3.3 mmHg FINDINGS LEFT VENTRICLE Normal left ventricular size. Wall thickness is normal. The left ventricular systolic function is severely reduced with an estimated ejection fraction in th e range of 25-30%. There is paradoxical septal motion. This study was not technically sufficient to allow for evaluation of left ventricular diastolic func tion. There is global left ventricular dysfunction. RIGHT VENTRICLE The right ventricle is mildly dilated. The right ventricular systoilc function is mildly decreased. LEFT ATRIUM The left atrial size is [id number] dilated. RIGHT ATRIUM The right atrial size is gbsj-bc-hbbahndjzj dilated. ATRIAL SEPTUM The interatrial septum not well visualized. AORTA The aortic root and proximal ascending aorta are normal in size on limited imaging. MITRAL VALVE Structurally normal mitral valve. Yjrzq-gu-[id number] mitral valve regurgitation. Mild mitral annular calcification. AORTIC VALVE Aortic valve sclerosis is present. No aortic valve regurgitation. No aortic valve stenosis. TRICUSPID VALVE Structurally normal tricuspid valve. There is trace tricuspid valve regurgitation. There is estimated mild pulmonary hypertension present (range 40-50 mmHg). PULMONARY VALVE The pulmonary valve is not well visualized. VESSELS The inferior vena cava is dilated. There is greater than 50% respiratory change in dimension of the inferior vena cava (normal). PERICARDIUM Possible trace anterior pericardial effusion vs fat pad Perez Rhodes MD (Electronically Signed) Final Date:30 June 2017 19:29
[2017-06-30] MEDS: guaiFENesin E.R. 600 MG TAB PO SCH (20:24)
[2017-06-30] MEDS: VANCOMYCIN INJ 1,500 MG in SODIUM CHLORID 0.9% 500 ML INJ 500 ML IV SCH (20:24)
[2017-06-30] MEDS: MAGNESIUM OXIDE 400 MG TAB PO SCH (20:24)
[2017-06-30] MEDS: ZOLPIDEM TARTRATE 10 MG TAB PO PRN (22:43)
[2017-07-01] VITALS (31 sets, daily range): BP systolic 103–159; BP diastolic 59–100; PULSE 59–83; RESP 7–40; TEMP 97.4–98.6; O2SAT 88–96
[2017-07-01] MEDS: RESP: ALBUTEROL 2.5 MG/IPRATROPIUM 0.5 MG NEB (SCH) INH ×5 (03:41→15:30)
[2017-07-01] MEDS: SODIUM CHLOR 0.9% 1000 ML INJ 1,000 ML IV SCH ×2 (03:43→16:20)
[2017-07-01] MEDS: PIPERACIL-TAZO 3.375 GM PREMIX 50 ML IV SCH ×4 (03:43→22:20)
[2017-07-01] MEDS: CHLORHEXIDINE GLUCONATE 2 % 1 PACK (2 CLOTHS) TOP SCH (03:43)
[2017-07-01 04:30] LABS: APTT (PATIENT) 31.6 SEC (24.3-30.1); INTERNATIONAL NORMALIZED RATIO 1.2 RATIO; PROTHROMBIN TIME - PATIENT 13.6 SEC (9.8-11.6)
[2017-07-01 04:31] LABS: ALKALINE PHOSPHATASE 103 U/L (45-117); ALT (GPT) 48 U/L (10-53); AMYLASE 20 U/L (25-115); ANION GAP 7 MEQ/L (5-15); AST (GOT) 62 U/L (15-37); BICARBONATE 23.3 MEQ/L (21.0-32.0); BLOOD UREA NITROGEN 12 MG/DL (7-18); CALCIUM-PROTEIN CORRECTED 8.1 MG/DL (8.5-10.1); CHLORIDE 111 MEQ/L (98-107); GLOMERULAR FILTRATION RATE 64 ML/MIN (>89); MAGNESIUM 1.9 MG/DL (1.5-2.5); POTASSIUM 4.2 MEQ/L (3.5-5.1); SODIUM (NA) 141 MEQ/L (136-145); TOTAL BILIRUBIN ADULT 0.5 MG/DL (0.2-1.0)
[2017-07-01 04:35] LABS: CREATINE KINASE 82 U/L (26-192)
[2017-07-01] MEDS: LEVOTHYROXINE SODIUM 25 MCG TAB PO SCH (06:26)
[2017-07-01] MEDS: HYDROCORTISONE SOD SUCCINATE 100 MG VIAL IV PUSH SCH (06:26)
[2017-07-01] MEDS: INSULIN ASPART SUPPLEMENTAL SCALE SQ SCH ×4 (06:27→21:00)
[2017-07-01] MEDS: DOCUSATE SODIUM 50 MG/SENNA 8.6 MG TAB PO SCH ×2 (09:00→22:22)
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
[2017-07-01] MEDS: BUDESONIDE-FORMOTEROL 160/4.5 MCG INHALER INH SCH ×2 (10:03→22:22)
[2017-07-01] MEDS: CITALOPRAM HYDROBROMIDE 20 MG TAB PO SCH (10:03)
[2017-07-01] MEDS: guaiFENesin E.R. 600 MG TAB PO SCH ×2 (10:03→22:21)
[2017-07-01] MEDS: FAMOTIDINE 20 MG/2 ML VIAL IV PUSH SCH (10:03)
[2017-07-01] MEDS: SODIUM CHLORIDE 0.9% FLUSH 10 ML FLUSH IV FLUSH SCH ×2 (10:03→22:22)
[2017-07-01] MEDS: MAGNESIUM OXIDE 400 MG TAB PO SCH ×2 (10:03→22:22)
[2017-07-01] MEDS: FLUCONAZOLE 200 MG TAB PO SCH (10:54)
--- NOTE | 2017-07-01 11:31 | HHI.CCPN ---
Subjective Remarks/Hospital Course This is a 57-year-old female that presented to [facility] emergency department with complaints of nausea and vomiting. She reports that she has been having symptoms for approximately 2 days, with episodes of dizziness with a syncopal episode on Tuesday. She reported to her primary care physician on Tuesday, Dr. Urbina at which point she stated that she was informed she had a possible urinary tract infection she was placed on antibiotics Flagyl, and a floroquinolone and she received some type of IM injection, medication unknown her symptoms worsen and she presented to the ED this afternoon vital signs were obtained systolic BP was noted to be in the 70s. The patient received approximately 3 L of IV fluid and empiric antibiotics were initiated, Atrezonam and Flagyl. The patient continued to be hypotensive and norepinephrine was initiated. Laboratory and imaging studies were performed which revealed a creatinine of 2.8, patient's baseline creatinine is 1.0, thrombocytopenia, and hyponatremia. UA was obtained which revealed hematuria. CT of the abdomen and pelvis revealed nephrolithiasis, diverticulosis and stable gallstones which resembled her previous CT scan of the abdomen performed in 2009. Critical care medicine was consulted for management. A right subclavian triple-lumen catheter was placed in the ED. Subjective: 06/29: Afebrile. This a.m., norepinephrine discontinued. Phenylephrine infusion low-dose at 20 mcgs currently infusing. Creatinine improved down to 1.6. The patient continues on normal saline 84cc/hr. Nausea resolved patient now tolerating a heart healthy diet. 06/30: Resting comfortably in bed in no acute distress. Poor appetite. Remains on Gui-Synephrine at 60 mics grams per minute. She is very hard of hearing. Dr. Urbina- chronic specialist physician has seen her today. Subjective 07/01: Overnight on Gui-Synephrine now weaned off again. Patient appears comfortable but slightly short of breath. Creatinine normal Objective Vital Signs Date Time Temp Pulse Resp B/P Pulse Ox O2 Delivery O2 Flow Rate FiO2 07/01/17 08:11 95 Nasal Cannula 3.00 07/01/17 06:00 59 07/01/17 04:00 98.0 27 143/83 Intake and Output 06/30/17 06/30/17 07/01/17 08:00 16:00 00:00 Intake Total 1709 ml 1190 ml 1700 ml Output Total 1375 ml 300 ml 550 ml Balance 334 ml 890 ml 1150 ml Result Diagram: 06/30/17 0345 07/01/17 0400 Imaging Last Impressions Renal Ultrasound 06/29/17 0000 Signed Impressions: Service Date/Time: Thursday, June 29, 2017 10:19 - CONCLUSION: Normal-appearing kidneys Sathya Rowe MD Abdomen/Pelvis CT 06/28/17 1126 Signed Impressions: Service Date/Time: Wednesday, June 28, 2017 11:48 - CONCLUSION: 1. 7 mm stone midpole left kidney not causing obstruction. 2. 4 mm stone lower pole left kidney not causing obstruction. 3. 3 mm stone midpole right kidney not causing obstruction. 4. Stable gallstones in the gallbladder. No biliary tract obstruction. 5. Scattered diverticulosis of the sigmoid colon 6. No significant changes compared to 2009. Eric Flores MD Chest X-Ray 06/28/17 0000 Signed Impressions: Service Date/Time: Wednesday, June 28, 2017 15:06 - CONCLUSION: 1. Right central line in place. No pneumothorax. 2. Pulmonary venous congestion. Eric Flores MD Objective Remarks GENERAL: Sitting up in bed, slightly dyspneic SKIN: Warm and dry. HEAD: Atraumatic. Normocephalic. EYES: Pupils equal and round. No scleral icterus. No injection or drainage. ENT: No nasal bleeding or discharge. Mucous membranes pink and moist. NECK: Trachea midline. No JVD. CARDIOVASCULAR: Regular rate and rhythm. RESPIRATORY: No accessory muscle use. Clear to auscultation. Breath sounds equal bilaterally. GASTROINTESTINAL: Abdomen soft, non-tender, nondistended. Hepatic and splenic margins not palpable. MUSCULOSKELETAL: Extremities without clubbing, cyanosis, or edema. No obvious deformities. NEUROLOGICAL: Awake and alert. No obvious cranial nerve deficits. Motor grossly within normal limits. Five out of 5 muscle strength in the arms and legs. Normal speech. Date of Insertion: Jun 28, 2017 Date of Insertion: Jun 28, 2017 Side: Right Location: Subclavian A/P Assessment and Plan Neuro/Psych: Toxic metabolic encephalopathy secondary to urinary tract infection/urosepsis Chronic benzodiazepine use Insomnia Depression/anxiety History of traumatic brain injury Continue citalopram 20 mg by mouth daily for depression Holding trazodone 100 mg daily at bedtime. Holding zolpidem 10 mg daily at bedtime for insomnia On melatonin 5 mg by mouth daily at bedtime for insomnia Acetaminophen 650 mg every 6 hours when necessary for pain or fever Minimize sedatives/holding diazepam 5 mg twice a day Respiratory: Acute respiratory insufficiency COPD/asthma Maintain O2 sat greater than 92%. At home on fluticasone/salmeterol 250/one inhalation twice a day. Symbicort substitution at this facility Wean FiO2 as tolerated. Albuterol/Atrovent aerosols every 6 hours scheduled Maintain head of bed 30 Cardiovascular: Septic shock-resolved History of hypertension Hold home antihypertensive meds including losartan 50 mg by mouth daily Holding diuretics furosemide 20 mg daily and spironolactone 25 mg daily light of hypotension Maintain MAP greater than 60 -65 mmHg DC Phenylephrine infusion 2 mcg/m wean as tolerated On stress dose Solu-Cortef 100 mg IV q8. Start tapering to 50 q8 from 07/03/17 and stop in 3 days Renal: Nephrolithiasis Acute kidney injury Nephrology following CT-mid pole right kidney 3 mm stone, upper pole left kidney 7 mm stone, lower left pole 4 mm stone-all nonobstructive, no hydronephrosis -- Strict I/Os Creatinine normal FEN/GI: Hypopotassemia Hypo-magnesium Hypophosphatemia Cholelithiasis Sigmoid diverticulosis Electrolyte replacement per protocol Normal saline 84 cc/hour Heart healthy diet Ondansetron when necessary nausea Famotidine for GI prophylaxis-DC. Resume 40 mg daily omeprazole home 06/28 CT abdomen and pelvis-stable gallstones, scattered diverticulosis of sigmoid colon. Heme/ID: Leukocytosis Acute pyelonephritis Candiduria Follow-up lactic acid levels ID following- Dr. Gómez Obtain blood culture 06/28 no growth Follow-up urine culture /8 candiduria F/U C. difficile antigen Continue Zosyn and Diflucan Endocrine: Low cortisol/recent steroid use Hypothyroidism Continue levothyroxine 25 mg daily Glucose monitoring per ICU protocol Solu-Cortef 100 every 8-taper as above -- SSI continue Prophylaxis: GI Prophylaxis PPI DVT Prophylaxis -- SCDs/holding chemical prophylaxis with hematuria Right subclavian triple-lumen 06/28-DC today, right radial A-line 06/28- 06/29, peripheral IVs 2 Dispo: Level III follow-up Donna Mcdonnell MD Jul 01, 2017 11:31 Donna Mcdonnell MD Jul 01, 2017 11:31 Level III follow-up Donna Mcdonnell MD Jul 01, 2017 11:31
[2017-07-01 12:40] LABS: BLOOD, URINE SMALL (NEG); GLUCOSE,URINE NEG (NEG); KETONE, URINE NEG (NEG); MUCUS URINE FEW /lpf (OCC); NITRITE,URINE NEG (NEG); URINE COLOR YELLOW (YELLW/STRAW)
[2017-07-01 12:43] LABS: COMMENT (UR) CATH-CULT NOT IND; CULTURE IF INDICATED CATH CULTURE NOT IND
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
[2017-07-01] MEDS: CALCIUM CARBONATE 1.25 GM (CA 500 MG) TAB PO SCH (16:20)
[2017-07-01] MEDS: predniSONE 20 MG TAB PO SCH (16:20)
--- NOTE | 2017-07-01 16:28 | HHI.NPPN ---
Subjective History of Present Illness 57-year-old female with past medical history of anxiety. depression, bronchial asthma, hypertension, arthritis, hypothyroidism was brought to the [facility] because of nausea, vomiting and generalized weakness. I was called to see the patient because of elevated BUN and creatinine. Additional Remarks Patient is alert, still has cough, mainly dry, breathing is better. Review of Systems General Constitutional: Fatigue Respiratory Lungs: SOB, Cough Cardiovascular Cardiac: ALCARAZ Objective Data Data 06/30/17 07/01/17 19:00 07:00 Intake Total 1190 ml 3475 ml Output Total 300 ml 2300 ml Balance 890 ml 1175 ml Intake Oral 240 ml 500 ml IV Total 950 ml 2975 ml Output Urine Total 300 ml 2300 ml # Bowel Movements 0 1 Vital Signs Date Time Temp Pulse Resp B/P Pulse Ox O2 Delivery O2 Flow Rate FiO2 07/01/17 12:30 72 24 114/70 90 07/01/17 12:16 74 7 122/64 95 07/01/17 12:00 97.4 74 34 115/71 91 07/01/17 11:45 78 38 116/66 93 07/01/17 11:30 75 28 119/74 95 07/01/17 11:00 75 19 130/76 93 07/01/17 10:46 83 26 138/78 88 07/01/17 10:37 79 38 103/59 92 07/01/17 10:30 75 23 136/90 90 07/01/17 10:16 73 40 122/77 94 07/01/17 10:00 81 23 125/77 92 07/01/17 09:30 74 7 131/84 90 07/01/17 09:01 74 9 145/100 92 07/01/17 09:00 75 15 90 07/01/17 08:30 65 29 147/87 93 07/01/17 08:11 95 Nasal Cannula 3.00 07/01/17 08:00 98.6 64 12 159/100 95 07/01/17 06:00 59 07/01/17 04:00 67 07/01/17 04:00 98.0 67 27 143/83 95 07/01/17 02:00 59 07/01/17 00:00 83 07/01/17 00:00 97.9 83 25 125/78 93 06/30/17 22:00 80 06/30/17 21:43 93 Nasal Cannula 3.00 06/30/17 20:00 98.7 74 22 119/74 93 06/30/17 20:00 74 06/30/17 18:00 86 -: 06/30/17 0345 07/01/17 0400 Physical Exam General Appearance: No Acute Distress, Comfortable Eyes Eye Exam: Pupils Equal Throat Throat Exam: Oral Mucosa Clymer & Moist Neck Neck Exam: Neck Supple Pulmonary Resp Exam: No Distress, Crackles, Rhonchi, Decreased Bases, Diminished Breath Sounds Cardiology CV Exam: Regular, Normal Sinus Rhythm Gastrointestinal/Abdomen GI Exam: Soft, Non-Tender, Bowel Sounds Present, Distended Extremeties Extremities Exam: No Edema Neurologic Neuro Exam: Alert, Awake, Oriented Psychiatric Psych Exam: Appropriate Responses Assessment/Plan Assessment Summary: DARLENE/Acute Renal Failure, Acute Tubular Necrosis Electrolyte Assessment: Hypokalemia Problem List: (1) Hypokalemia (2) Diabetes mellitus (3) Hypothyroidism (4) Shock circulatory (5) Hyponatremia (6) Acute kidney injury Plan Patient has been non oliguric. The BP is still low. Creatinine is now normalized. K and Po4 level improved. Continue antibiotics. Avoid Nephrotoxins. I will sign off from Nephrology, please call again if needed. Problem Qualifiers (1) Diabetes mellitus: (2) Hypothyroidism: Qualified Code: E03.9 - Hypothyroidism, unspecified type Beau Cohen MD Jul 01, 2017 16:28
[2017-07-01] MEDS ORDERED: PHARMACY ORDERED LAB ONE (20:45)
[2017-07-01] MEDS: ZOLPIDEM TARTRATE 10 MG TAB PO PRN (22:20)
[2017-07-01] MEDS: MELATONIN 5 MG TAB PO SCH (22:21)
[2017-07-02] VITALS (11 sets, daily range): BP systolic 124–145; BP diastolic 73–85; PULSE 71–88; RESP 18–20; TEMP 96.2–97.3; O2SAT 92–98
[2017-07-02] MEDS: SODIUM CHLOR 0.9% 1000 ML INJ 1,000 ML IV SCH (02:51)
[2017-07-02] MEDS: CHLORHEXIDINE GLUCONATE 2 % 1 PACK (2 CLOTHS) TOP SCH (03:25)
[2017-07-02] MEDS: RESP: ALBUTEROL 2.5 MG/IPRATROPIUM 0.5 MG NEB (SCH) INH ×4 (04:32→20:46)
[2017-07-02 05:45] LABS: AUTOMATED NEUTROPHIL # 4.4 TH/MM3 (1.8-7.7); BASOPHIL % 0.4 % (0.0-2.0); HEMATOCRIT 33.7 % (35.0-46.0); LYMPH % 37.2 % (9.0-44.0); LYMPHOCYTE # 2.9 TH/MM3 (1.0-4.8); MEAN CELL VOLUME 89.7 FL (80.0-100.0); MEAN CORPUSCULAR HEMOGLOBIN 30.9 PG (27.0-34.0); MEAN CORPUSCULAR HGB CONC 34.4 % (32.0-36.0); MONO % 6.1 % (0.0-8.0); NEUT % 56.3 % (16.0-70.0); PLATELET COUNT 140 TH/MM3 (150-450); RED BLOOD COUNT 3.76 MIL/MM3 (4.00-5.30); RED CELL DISTRIBUTION WIDTH 14.1 % (11.6-17.2); WHITE BLOOD COUNT 7.7 TH/MM3 (4.0-11.0)
[2017-07-02] MEDS: PIPERACIL-TAZO 3.375 GM PREMIX 50 ML IV SCH ×2 (06:01→10:25)
[2017-07-02] MEDS: LEVOTHYROXINE SODIUM 25 MCG TAB PO SCH (06:01)
[2017-07-02 06:08] LABS: HEMO FLAGS AUTO DIFF
[2017-07-02 06:11] LABS: ALKALINE PHOSPHATASE 96 U/L (45-117); ALT (GPT) 47 U/L (10-53); ANION GAP 8 MEQ/L (5-15); AST (GOT) 55 U/L (15-37); BICARBONATE 24.6 MEQ/L (21.0-32.0); BLOOD UREA NITROGEN 12 MG/DL (7-18); CHLORIDE 109 MEQ/L (98-107); GLOMERULAR FILTRATION RATE 76 ML/MIN (>89); MAGNESIUM 1.8 MG/DL (1.5-2.5); POTASSIUM 3.7 MEQ/L (3.5-5.1); SODIUM (NA) 142 MEQ/L (136-145); TOTAL BILIRUBIN ADULT 0.4 MG/DL (0.2-1.0)
[2017-07-02] MEDS: INSULIN ASPART SUPPLEMENTAL SCALE SQ SCH ×4 (06:14→23:44)
[2017-07-02] MEDS: CALCIUM CARBONATE 1.25 GM (CA 500 MG) TAB PO SCH (09:00)
[2017-07-02] MEDS: DOCUSATE SODIUM 50 MG/SENNA 8.6 MG TAB PO SCH ×2 (09:00→23:40)
[2017-07-02] MEDS: SODIUM CHLORIDE 0.9% FLUSH 10 ML FLUSH IV FLUSH SCH ×2 (09:00→23:39)
[2017-07-02] MEDS: BUDESONIDE-FORMOTEROL 160/4.5 MCG INHALER INH SCH ×2 (09:00→23:39)
[2017-07-02 09:02] LABS: BANDS 8 % (0-6); NEUTROPHIL # MANUAL DIFF 6.6 TH/MM3 (1.8-7.7); POLYS (SEG NEUTROPHILS) 78 % (16-70); WBC DIFF SAMPLE 100
[2017-07-02 09:03] LABS: PLATELET ESTIMATE SMEAR LOW (NORMAL); PLATELET MORPHOLOGY NORMAL (NORMAL); SCAN/DIFF FINAL DIFF MANUAL
[2017-07-02] MEDS: MAGNESIUM OXIDE 400 MG TAB PO SCH (10:20)
[2017-07-02] MEDS: predniSONE 20 MG TAB PO SCH (10:20)
[2017-07-02] MEDS: guaiFENesin E.R. 600 MG TAB PO SCH (10:20)
[2017-07-02] MEDS: FLUCONAZOLE 200 MG TAB PO SCH (10:21)
[2017-07-02] MEDS: PANTOPRAZOLE SOD 40 MG DELAYED RELEASE TAB PO SCH (10:21)
[2017-07-02] MEDS: CITALOPRAM HYDROBROMIDE 20 MG TAB PO SCH (10:21)
--- NOTE | 2017-07-02 10:44 | HHI.PR ---
Subjective Remarks OOB in chair. Ambulated in room with walker and SBA. PO intake adequate. UOP good. Weight increased over 10 lbs since admission. BP adequate off pressers. +BM. Blood sugar under good control. Less cough. Denies SOB. Now on RA with O2 sat of 94%. O2 sat did not decrease after ambulation in room Current Medications Medications (Trade) Dose Ordered Sig/Davey Route Start Time Stop Time Status Last Admin (NS 1000 ml Inj) 1,000 ml @ 84 mls/hr [id number] IV 06/28/17 15:26 07/02/17 02:51 (NS Flush) 2 ml UNSCH PRN IV FLUSH 06/28/17 15:30 (NS Flush) 2 ml BID IV FLUSH 06/28/17 21:00 07/01/17 22:22 (Tylenol) 650 mg Q6H PRN PO 06/28/17 15:30 06/29/17 22:43 (Zofran Inj) 4 mg Q6H PRN IV 06/28/17 15:30 Miscellaneous Information 1 Q361D XX 06/28/17 15:30 (Chlorhexidine 2% Cloth) 3 pack Taper DAILY@04 TOP 06/29/17 04:00 06/25/18 03:59 07/01/17 03:43 (Chlorhexidine 2% Cloth) 3 pack UNSCH PRN TOP 06/28/17 15:30 (Sarah-Colace) 1 tab BID PO 06/28/17 21:00 07/01/17 22:22 (Milk Of Magnesia Liq) 30 ml Q12H PRN PO 06/28/17 15:30 (Senokot) 17.2 mg Q12H PRN PO 06/28/17 15:30 (Dulcolax Supp) 10 mg DAILY PRN RECTAL 06/28/17 15:30 (CeleXA) 20 mg DAILY PO 06/29/17 09:00 07/01/17 10:03 (Synthroid) 25 mcg DAILY@06 PO 06/29/17 06:00 07/02/17 06:01 (Ambien) 10 mg HS PRN PO 06/28/17 17:45 07/01/17 22:20 Budesonide/ Formoterol Fumarate 2 puff 2 puff BID INH 06/28/17 21:00 07/01/17 22:22 Vasopressin 40 units/Dextrose 100 ml @ 0 mls/hr Q0M IV 06/28/17 23:18 (Zosyn 3.375 Gm Premix) 50 ml @ 100 mls/hr Q6H IV 06/29/17 11:00 07/02/17 06:01 (D50w (Vial) Inj) 50 ml UNSCH PRN IV 06/29/17 15:30 (Glucagon Inj) 1 mg UNSCH PRN OTHER 06/29/17 15:30 (Melatonin) 5 mg HS PO 06/30/17 00:45 07/01/17 22:21 (Mucinex Er) 600 mg BID PO 06/30/17 21:00 07/01/17 22:21 (Diflucan) 200 mg Q24H PO 07/01/17 11:00 07/01/17 10:54 (Protonix) 40 mg DAILY PO 07/02/17 09:00 (Deltasone) 20 mg DAILY PO 07/01/17 12:45 07/01/17 16:20 (Oscal) 500 mg DAILY PO 07/01/17 12:45 07/01/17 16:20 (Percocet 7.5-325 Mg) 1 tab Q6H PRN PO 07/01/17 14:00 Objective Vital Signs Date Time Temp Pulse Resp B/P Pulse Ox O2 Delivery O2 Flow Rate FiO2 07/02/17 08:10 94 07/02/17 07:30 96.8 77 20 145/73 98 07/02/17 04:40 93 07/02/17 04:00 97.3 71 18 124/80 94 07/02/17 00:00 97.3 80 20 130/78 96 07/01/17 20:00 73 07/01/17 20:00 97.6 81 20 137/77 95 07/01/17 19:45 97.9 78 25 126/71 96 07/01/17 19:00 75 39 07/01/17 18:00 72 27 94 07/01/17 17:00 78 28 108/60 95 07/01/17 16:26 72 121/75 94 07/01/17 16:00 97.4 81 92 07/01/17 15:00 70 20 126/86 94 07/01/17 14:00 72 27 115/74 92 07/01/17 13:00 77 25 122/75 93 07/01/17 12:30 72 24 114/70 90 07/01/17 12:16 74 7 122/64 95 07/01/17 12:00 97.4 74 34 115/71 91 07/01/17 11:45 78 38 116/66 93 07/01/17 11:30 75 28 119/74 95 07/01/17 11:00 75 19 130/76 93 07/01/17 10:46 83 26 138/78 88 07/01/17 10:37 79 38 103/59 92 07/01/17 10:30 75 23 136/90 90 I/O 07/01/17 07/01/17 07/01/17 07/02/17 07/02/17 07/02/17 07:00 15:00 23:00 07:00 15:00 23:00 Intake Total 1775 ml 1490 ml Output Total 1750 ml 400 ml 400 ml 550 ml Balance 25 ml 1090 ml -400 ml -550 ml Intake Oral 800 ml IV Total 1775 ml 690 ml Output Urine Total 1750 ml 400 ml 400 ml 550 ml # Bowel Movements 3 Gen: Morbidly obese middle aged WF in chair in NAD CV: RRR Lungs: CTA with improved air exchange Ext: No edema or calf tenderness Result Diagram: 07/02/17 0505 07/02/17 0505 Assessment and Plan Problem List: (1) Sepsis Status: Resolved Plan: BP adequate. (2) UTI (urinary tract infection) Status: Acute Plan: Repeat UA essentially WNL. No culture indicated. Per ID note change to PO levaquin and Diflucan (3) Acute kidney injury Status: Resolved Plan: Renal has signed off. Renal function improving. Patient is retaining large amount of fluid. Begin PO Lasix and KCL and monitor renal function. (4) Asthma Status: Chronic Plan: Respiratory status better. Discontinue O2. Cont Nebs and wean as tolerated.. Decrease Prednisone to 10 mg daily. Cont Symbicort with plan to transition back to Advair upon discharge (5) Hypertension Status: Chronic Plan: Antihypertensive meds on hold due to recent septic shock. Monitor BP closely. (6) GERD (gastroesophageal reflux disease) Status: Chronic Plan: Cont Pantoprazole (7) Anxiety Status: Chronic Plan: Cont Citalopram. Diazepam on hold. (8) Insomnia Status: Chronic Plan: Patient receiving Melatonin and Zolpidem. Sleeping better (9) Hypothyroidism Status: Chronic Plan: Cont Levothyroxine (10) Hyperglycemia Status: Acute Plan: Secondary to stress reaction and steroids. Improving. Will follow (11) Hypocalcemia Status: Acute Plan: Cont calcium supplement and follow (12) Hypomagnesemia Status: Resolved Plan: Discontinue Mag Oxide Discharge Planning Patient would like to go home at discharge. If ambulating adequately for individual who lives alone can go home with Home Health. If not she will need short term SNF placement Problem Qualifiers (1) Sepsis: Qualified Code: A41.9 - Sepsis, due to unspecified organism (2) UTI (urinary tract infection): Qualified Code: N30.00 - Acute cystitis without hematuria (3) Asthma: Qualified Code: J45.21 - Mild intermittent asthma with acute exacerbation (4) Hypertension: Qualified Code: I10 - Essential hypertension (5) GERD (gastroesophageal reflux disease): Qualified Code: K21.9 - Gastroesophageal reflux disease without esophagitis (6) Insomnia: Qualified Code: F51.04 - Psychophysiological insomnia (7) Hypothyroidism: Qualified Code: E03.9 - Hypothyroidism, unspecified type Porfirio Urbina MD Jul 02, 2017 10:44
[2017-07-02] MEDS: FUROSEMIDE 40 MG TAB PO SCH (12:00)
[2017-07-02] MEDS: POTASSIUM CHLORIDE 20 MEQ CONTROLLED RELEASE TAB PO SCH (12:00)
[2017-07-02] MEDS: oxyCODONE/ACETAMINOPHEN 7.5 MG/325 MG TAB PO PRN ×2 (12:51→17:27)
[2017-07-02] MEDS: MELATONIN 5 MG TAB PO SCH (21:00)
[2017-07-03] VITALS (7 sets, daily range): BP systolic 116–179; BP diastolic 65–87; PULSE 68–94; RESP 18–20; TEMP 96–98.3; O2SAT 91–98
[2017-07-03] MEDS: oxyCODONE/ACETAMINOPHEN 7.5 MG/325 MG TAB PO PRN ×4 (00:38→21:13)
[2017-07-03] MEDS: ZOLPIDEM TARTRATE 10 MG TAB PO PRN ×2 (00:38→22:28)
[2017-07-03] MEDS: RESP: ALBUTEROL 2.5 MG/IPRATROPIUM 0.5 MG NEB (SCH) INH (04:00)
[2017-07-03] MEDS: CHLORHEXIDINE GLUCONATE 2 % 1 PACK (2 CLOTHS) TOP SCH (04:00)
[2017-07-03] MEDS: LEVOTHYROXINE SODIUM 25 MCG TAB PO SCH (06:37)
[2017-07-03] MEDS: INSULIN ASPART SUPPLEMENTAL SCALE SQ SCH ×4 (06:38→21:18)
[2017-07-03] MEDS ORDERED: PHARMACY ORDERED LAB ONE (07:45)
[2017-07-03] MEDS: CITALOPRAM HYDROBROMIDE 20 MG TAB PO SCH (07:57)
[2017-07-03] MEDS: POTASSIUM CHLORIDE 20 MEQ CONTROLLED RELEASE TAB PO SCH (07:57)
[2017-07-03] MEDS: CALCIUM CARBONATE 1.25 GM (CA 500 MG) TAB PO SCH (07:57)
[2017-07-03] MEDS: SODIUM CHLORIDE 0.9% FLUSH 10 ML FLUSH IV FLUSH SCH ×2 (07:57→21:10)
[2017-07-03] MEDS: FUROSEMIDE 40 MG TAB PO SCH (07:57)
[2017-07-03] MEDS: DOCUSATE SODIUM 50 MG/SENNA 8.6 MG TAB PO SCH ×2 (07:57→21:10)
[2017-07-03] MEDS: PANTOPRAZOLE SOD 40 MG DELAYED RELEASE TAB PO SCH (07:57)
[2017-07-03] MEDS: FLUCONAZOLE 200 MG TAB PO SCH (07:59)
[2017-07-03 08:25] LABS: AUTOMATED NEUTROPHIL # 4.6 TH/MM3 (1.8-7.7); BASOPHIL # 0.1 TH/MM3 (0-0.2); BASOPHIL % 0.6 % (0.0-2.0); EOSINOPHIL % 0.3 % (0.0-4.0); HEMATOCRIT 38.3 % (35.0-46.0); HEMO FLAGS DIFF FINAL; LYMPH % 39.6 % (9.0-44.0); LYMPHOCYTE # 3.5 TH/MM3 (1.0-4.8); MEAN CELL VOLUME 91.5 FL (80.0-100.0); MEAN CORPUSCULAR HEMOGLOBIN 30.4 PG (27.0-34.0); MEAN CORPUSCULAR HGB CONC 33.2 % (32.0-36.0); MONO % 7.5 % (0.0-8.0); PLATELET COUNT 181 TH/MM3 (150-450); RED BLOOD COUNT 4.19 MIL/MM3 (4.00-5.30); RED CELL DISTRIBUTION WIDTH 14.2 % (11.6-17.2); WHITE BLOOD COUNT 8.8 TH/MM3 (4.0-11.0)
[2017-07-03 08:48] LABS: BICARBONATE 26.2 MEQ/L (21.0-32.0); POTASSIUM 3.8 MEQ/L (3.5-5.1)
--- NOTE | 2017-07-03 08:53 | HHI.PR ---
Subjective Remarks Ambulating to BR with walker. PO intake good. Excellent diuresis with Lasix yesterday. BP stable. Blood sugar was good throughtout day yesterday. Was >200 last evening but was checked after she ate late dinner. FBS 96 this am. +BM. Minimal cough. Slept well with Zolpidem and Melatonin. Current Medications Medications (Trade) Dose Ordered Sig/Davey Route Start Time Stop Time Status Last Admin (NS Flush) 2 ml UNSCH PRN IV FLUSH 06/28/17 15:30 (NS Flush) 2 ml BID IV FLUSH 06/28/17 21:00 07/03/17 07:57 (Tylenol) 650 mg Q6H PRN PO 06/28/17 15:30 06/29/17 22:43 (Zofran Inj) 4 mg Q6H PRN IV 06/28/17 15:30 Miscellaneous Information 1 Q361D XX 06/28/17 15:30 (Chlorhexidine 2% Cloth) 3 pack Taper DAILY@04 TOP 06/29/17 04:00 06/25/18 03:59 07/03/17 04:00 (Chlorhexidine 2% Cloth) 3 pack UNSCH PRN TOP 06/28/17 15:30 (Sarah-Colace) 1 tab BID PO 06/28/17 21:00 07/03/17 07:57 (Milk Of Magnfernanda Liq) 30 ml Q12H PRN PO 06/28/17 15:30 (Senokot) 17.2 mg Q12H PRN PO 06/28/17 15:30 (Dulcolax Supp) 10 mg DAILY PRN RECTAL 06/28/17 15:30 (CeleXA) 20 mg DAILY PO 06/29/17 09:00 07/03/17 07:57 (Synthroid) 25 mcg DAILY@06 PO 06/29/17 06:00 07/03/17 06:37 (Ambien) 10 mg HS PRN PO 06/28/17 17:45 07/03/17 00:38 (Symbicort 160-4.5 Inh) 2 puff BID INH 06/28/17 21:00 07/02/17 23:39 (D50w (Vial) Inj) 50 ml UNSCH PRN IV 06/29/17 15:30 (Glucagon Inj) 1 mg UNSCH PRN OTHER 06/29/17 15:30 (Melatonin) 5 mg HS PO 06/30/17 00:45 07/02/17 21:00 (Diflucan) 200 mg Q24H PO 07/01/17 11:00 07/03/17 07:59 (Protonix) 40 mg DAILY PO 07/02/17 09:00 07/03/17 07:57 (Oscal) 500 mg DAILY PO 07/01/17 12:45 07/03/17 07:57 (Percocet 7.5-325 Mg) 1 tab Q6H PRN PO 07/01/17 14:00 07/03/17 06:42 (Deltasone) 10 mg DAILY PO 07/03/17 09:00 07/03/17 07:57 (Levaquin) 750 mg DAILY@11 PO 07/03/17 11:00 (Lasix) 20 mg DAILY PO 07/04/17 09:00 (KCl) 10 meq DAILY PO 07/04/17 09:00 Objective Vital Signs Date Time Temp Pulse Resp B/P Pulse Ox O2 Delivery O2 Flow Rate FiO2 07/03/17 07:50 96.0 76 20 143/87 95 07/03/17 04:00 96.3 83 18 130/65 94 07/03/17 01:38 16 07/03/17 00:32 74 07/03/17 00:00 96.2 83 18 130/65 93 07/02/17 20:48 92 21 07/02/17 20:00 97.0 88 19 138/84 94 07/02/17 15:50 97.0 81 20 139/78 93 07/02/17 15:35 77 07/02/17 11:30 96.2 82 20 135/85 92 I/O 07/02/17 07/02/17 07/02/17 07/03/17 07/03/17 07/03/17 07:00 15:00 23:00 07:00 15:00 23:00 Intake Total 600 ml 480 ml 240 ml Output Total 550 ml 850 ml 2000 ml 1500 ml Balance -550 ml -250 ml -1520 ml -1260 ml Intake Oral 600 ml 480 ml 240 ml Output Urine Total 550 ml 850 ml 2000 ml 1500 ml # Bowel Movements 2 0 0 Gen: Obese middle aged WF fatigued but no respiratory distress. CV: RRR Lungs: CTA with improved air exchange Ext: No edema Result Diagram: 07/03/17 0746 07/02/17 4922 Assessment and Plan Problem List: (1) Sepsis Status: Resolved Plan: BP adequate. D/C Telemetry (2) UTI (urinary tract infection) Status: Acute Plan: Repeat UA essentially WNL. No culture indicated. Per ID patient to complete 14 days Levaquin and Diflucan po (3) Acute kidney injury Status: Resolved Plan: Renal has signed off. Renal function has returned to normal. Will decrease Lasix to 20 mg daily to aid in diuresis. Still retaining fluid from IVF received in ICU. Will need to follow renal function and electrolytes (4) Asthma Status: Chronic Plan: Respiratory statusInproved. Decrease Presnisone to 5 mg daily. Decrease frequency of Nebs. Cont Symbicort. Patient normally uses Advair 250/ 50 mc 1 inhalation twice a day at home (5) Hypertension Status: Chronic Plan: Antihypertensive meds on hold due to recent septic shock. Monitor BP closely. (6) GERD (gastroesophageal reflux disease) Status: Chronic Plan: Cont Pantoprazole. Patient normally uses Omeprazole 20 mg daily at home (7) Anxiety Status: Chronic Plan: Cont Citalopram. Diazepam on hold. (8) Insomnia Status: Chronic Plan: Patient receiving Melatonin and Zolpidem. Sleeping better (9) Hypothyroidism Status: Chronic Plan: Cont Levothyroxine (10) Hyperglycemia Status: Acute Plan: Secondary to stress reaction and steroids. Improving with weaning steroids. Normally no problem with hyperglycemia at home. Will follow (11) Hypocalcemia Status: Acute Plan: Improving. Protein corrected calcium pending. Cont calcium supplement and follow Assessment and Plan I will be out of town until Tuesday July 11, 2017. [facility] are covering. Discharge Planning If patient feeling strong enough to be home alone can discharge home with Home health (order sent to case management). Otherwise if needs rehab, she would prefer [facility]. Problem Qualifiers (1) Sepsis: Qualified Code: A41.9 - Sepsis, due to unspecified organism (2) UTI (urinary tract infection): Qualified Code: N30.00 - Acute cystitis without hematuria (3) Asthma: Qualified Code: J45.21 - Mild intermittent asthma with acute exacerbation (4) Hypertension: Qualified Code: I10 - Essential hypertension (5) GERD (gastroesophageal reflux disease): Qualified Code: K21.9 - Gastroesophageal reflux disease without esophagitis (6) Insomnia: Qualified Code: F51.04 - Psychophysiological insomnia (7) Hypothyroidism: Qualified Code: E03.9 - Hypothyroidism, unspecified type Porfirio Urbina MD Jul 03, 2017 08:53
--- NOTE | 2017-07-03 08:58 | HHI.FF ---
Face to Face Verification Diagnosis: (1) Sepsis (2) UTI (urinary tract infection) (3) Asthma (4) Acute kidney injury (5) Anxiety (6) Insomnia (7) Hyperglycemia, drug-induced Physical Therapy Order: Evaluate and Treat, Improve ambulation, Strength and gait training Occupational Therapy Order: Evaluate and Treat, Improve ADL Home Health Nursing Order: Medical education Medication education-adverse effect Nursing assessment with vital signs Home Health Aide Order: To Assist In: Bathing and personal care I have seen patient Bessy Szymanski on 07/03/17. My clinical findings support the need for the requested home health care services because: Ltd mobility - disease progression Deconditioned w/ increased weakness Med compliance is questionable Need for psychosocial assistance I certify that my clinical findings support that this patient is homebound because: Impaired cognitive ability/safety Unsteady gait/balance Need for psychosocial assistance Porfirio Urbina MD Jul 03, 2017 08:58
[2017-07-03] MEDS ORDERED: predniSONE 10 MG TAB PO SCH (09:00)
[2017-07-03 09:37] LABS: CALCIUM-PROTEIN CORRECTED 8.7 MG/DL (8.5-10.1)
[2017-07-03] MEDS: LEVOFLOXACIN 750 MG TAB PO SCH (12:04)
[2017-07-03] MEDS: BUDESONIDE-FORMOTEROL 160/4.5 MCG INHALER INH SCH ×2 (12:06→21:12)
[2017-07-03] MEDS: MELATONIN 5 MG TAB PO SCH (21:14)
[2017-07-03] MEDS: RESP: ALBUTEROL 2.5 MG/IPRATROPIUM 0.5 MG NEB (SCH) NEB (23:55)
[2017-07-04] VITALS (8 sets, daily range): BP systolic 118–133; BP diastolic 59–83; PULSE 78–110; RESP 19–24; TEMP 97.1–98.6; O2SAT 92–98
[2017-07-04] MEDS: CHLORHEXIDINE GLUCONATE 2 % 1 PACK (2 CLOTHS) TOP SCH (04:00)
[2017-07-04] MEDS: LEVOTHYROXINE SODIUM 25 MCG TAB PO SCH (06:18)
[2017-07-04] MEDS: oxyCODONE/ACETAMINOPHEN 7.5 MG/325 MG TAB PO PRN ×3 (06:19→19:53)
[2017-07-04] MEDS: INSULIN ASPART SUPPLEMENTAL SCALE SQ SCH ×3 (06:20→16:00)
[2017-07-04] MEDS: RESP: ALBUTEROL 2.5 MG/IPRATROPIUM 0.5 MG NEB (SCH) NEB ×2 (08:08→15:20)
[2017-07-04] MEDS ORDERED: FUROSEMIDE 20 MG TAB PO SCH (09:00)
[2017-07-04] MEDS ORDERED: predniSONE 5 MG TAB PO SCH (09:00)
[2017-07-04] MEDS ORDERED: POTASSIUM CHLORIDE 10 MEQ CONTROLLED RELEASE TAB PO SCH (09:00)
[2017-07-04] MEDS ORDERED: CALC500T30 PO (09:21)
[2017-07-04] MEDS ORDERED: POTA-243 PO (09:21)
[2017-07-04] MEDS ORDERED: ZOLP10TA3 PO (09:21)
[2017-07-04] MEDS ORDERED: DIFL200T PO (09:21)
[2017-07-04] MEDS ORDERED: LEVA750T9 PO (09:21)
[2017-07-04] MEDS ORDERED: GNP5TAB6 PO (09:21)
[2017-07-04] MEDS ORDERED: OXYC1TAB35 PO (09:21)
[2017-07-04] MEDS ORDERED: SENN1TAB PO (09:21)
[2017-07-04] MEDS ORDERED: FURO1TAB62 PO (09:21)
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
[2017-07-04] MEDS: CALCIUM CARBONATE 1.25 GM (CA 500 MG) TAB PO SCH (11:11)
[2017-07-04] MEDS: FLUCONAZOLE 200 MG TAB PO SCH (11:12)
[2017-07-04] MEDS: DOCUSATE SODIUM 50 MG/SENNA 8.6 MG TAB PO SCH (11:12)
[2017-07-04] MEDS: LEVOFLOXACIN 750 MG TAB PO SCH (11:12)
[2017-07-04] MEDS: BUDESONIDE-FORMOTEROL 160/4.5 MCG INHALER INH SCH (11:13)
[2017-07-04] MEDS: SODIUM CHLORIDE 0.9% FLUSH 10 ML FLUSH IV FLUSH SCH (11:18)
[2017-07-04] MEDS: CITALOPRAM HYDROBROMIDE 20 MG TAB PO SCH (11:18)
[2017-07-04] MEDS: PANTOPRAZOLE SOD 40 MG DELAYED RELEASE TAB PO SCH (11:20)
[2017-07-04 14:20] LABS: BLOOD, URINE NEG (NEG); GLUCOSE,URINE NEG (NEG); KETONE, URINE NEG (NEG); MUCUS URINE FEW /lpf (OCC); NITRITE,URINE NEG (NEG); SQUAMOUS EPITHELIAL CELL URINE <1 /hpf (0-5); URINE COLOR LIGHT-YELLOW (YELLW/STRAW)
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
== END 2017-07-04 20:00 | DRG 871 ==
LOC: PHED 11:18 → PHEDA 15:15 → HIMN 17:15 → HOCA 07-01 20:05
PROVIDERS: ADMIT Family Medicine; ATTEND Family Medicine
PROC: 05H533Z Insertion of Infusion Device into Right Subclavian Vein, Percutaneous Approach (ICD-10-PCS; principal; 2017-06-28)
DX: A41.9 Sepsis, unspecified organism (principal); R65.21 Severe sepsis with septic shock; N17.0 Acute kidney failure with tubular necrosis; E87.1 Hypo-osmolality and hyponatremia; G92 Toxic encephalopathy; B37.49 Other urogenital candidiasis; Z68.42 Body mass index [BMI] 45.0-49.9, adult; E83.51 Hypocalcemia; N20.0 Calculus of kidney; R06.89 Other abnormalities of breathing; I10 Essential (primary) hypertension; E66.01 Morbid (severe) obesity due to excess calories; M06.9 Rheumatoid arthritis, unspecified; I34.0 Nonrheumatic mitral (valve) insufficiency; K21.9 Gastro-esophageal reflux disease without esophagitis; E03.9 Hypothyroidism, unspecified; Z96.653 Presence of artificial knee joint, bilateral; R09.02 Hypoxemia; J45.909 Unspecified asthma, uncomplicated; G47.33 Obstructive sleep apnea (adult) (pediatric); Z91.19 Patient's noncompliance with other medical treatment and regimen; R73.9 Hyperglycemia, unspecified; F41.9 Anxiety disorder, unspecified; F32.9 Major depressive disorder, single episode, unspecified; E86.0 Dehydration; Z86.14 Personal history of Methicillin resistant Staphylococcus aureus infection; H91.92 Unspecified hearing loss, left ear; E78.5 Hyperlipidemia, unspecified; Z87.820 Personal history of traumatic brain injury; G47.00 Insomnia, unspecified; E87.6 Hypokalemia; E83.42 Hypomagnesemia; E83.39 Other disorders of phosphorus metabolism; K80.20 Calculus of gallbladder without cholecystitis without obstruction; K57.30 Diverticulosis of large intestine without perforation or abscess without bleeding
CPT/HCPCS: 36556; 71010; 74176; 76775; 76937; 80048; 80053; 80170; 81001; 82140; 82150; 82533; 82550; 82565; 82948; 83605; 83690; 83735; 84100; 84155; 84436; 84443; 84484; 85007; 85025; 85027; 85384; 85610; 85730; 87040; 87086; 87493; 87641; 93005; 93306; 94620; 94640; 94664; 96361; 96365; 96367; 96374; 96375; J0610; J1170; J1450; J1580; J1720; J1815; J2370; J2405; J2543; J3370; J3475; J3480; J7030; J7040; J7050; J7512